=== PATIENT | female | born 1970 | race Caucasian/White ===

== ENCOUNTER → 2020-03-23 11:43 | Outpatient (BNVA) | payer MEDICAID, SELFPAY | PROVIDERS: PCP Internal Medicine; Referring Provider Internal Medicine; Visit Provider Internal Medicine Gastroenterology | DX: Z76.89 Persons encountering health services in other specified circumstances (principal) | CPT/HCPCS: 99213 ==

== ENCOUNTER → 2020-06-15 14:14 | Outpatient (BNVA) | payer MEDICAID, SELFPAY | PROVIDERS: Visit Provider Internal Medicine Gastroenterology | DX: Z76.89 Persons encountering health services in other specified circumstances (principal) ==

== ENCOUNTER → 2020-10-27 09:14 | Outpatient (BNVA) | payer MEDICAID, SELFPAY | PROVIDERS: PCP Internal Medicine; Visit Provider Internal Medicine Gastroenterology ==

== ENCOUNTER 2020-12-14 09:53 | Day surgery (SDC) | payer MEDICAID, SELFPAY ==
--- NOTE | 2020-12-14 09:48 | HO.ANESPROP2 ---
[facility] Active Problems Active Problems: All Active Problems (Updated 12/08/20 @ 09:57 by Sue Mullins) Acute anastomotic ulcer of gastrojejunal region (Acute) Past Medical History Medical History ADHD Anxiety disorder Asthma Depression GERD (gastroesophageal reflux disease) Hypothyroidism Kidney stones Family History Family History Unknown No problems noted. Mother No problems noted. Surgical History Surgical History History of lithotripsy Hx of cholecystectomy Hx of colonoscopy Hx of endoscopy Hx of gastric bypass Social History Social History Alcohol intake: never Substance Use Type: Marijuana Meds Allergies Allergy/AdvReac Type Severity Reaction Status Date / Time buspirone [From BUSPAR] Allergy Unknown UNKNOWN Verified 10/27/20 09:15 shellfish derived Allergy Unknown UNKNOWN Verified 10/27/20 09:15 [SHELLFISH DERIVED] Home Medications Medication Instructions Recorded Confirmed Last Taken Type albuterol sulfate [ProAir HFA] 2 puff PO DAILY 12/08/20 12/08/20 Unknown History aripiprazole 1 tab PO DAILY 12/08/20 12/08/20 Unknown History loratadine 1 tab PO DAILY 12/08/20 12/08/20 Unknown History Exam Exam Date and Time: December 14, 2020 0948 Airway Mallampati Class: II TM Dist: >3cm Neck ROM: Full
--- NOTE | 2020-12-14 10:02 | MHC.SHP ---
Pre-Procedural Eval Section A Date of Service: 12/14/20 Section B Chief Complaint: Acute anastomotic ulcer of gastrojejunal region Relevant Family History (Specify if Yes): No Relevant Social History: Tobacco Use (THC use as well) Present Medications: see Short Stay Collaborative assessment Medical History: Significant History (ADHD Anxiety disorder Asthma Depression GERD (gastroesophageal reflux disease) Hypothyroidism Kidney stones) History of Previous Operations: Relevant previous surgery/procedure and date(s) (History of lithotripsy Hx of cholecystectomy Hx of colonoscopy Hx of endoscopy Hx of gastric bypass) Allergies: Allergies Allergy/AdvReac Type Severity Reaction Status Date / Time buspirone [From BUSPAR] Allergy Unknown UNKNOWN Verified 10/27/20 09:15 shellfish derived Allergy Unknown UNKNOWN Verified 10/27/20 09:15 [SHELLFISH DERIVED] Review of Systems Sugical H&P ROS: Negative: Constitution, Cardiovascular, Respiratory, Neurological, Psychiatric, Hem-Onc, Allergic/Immunologic, Gastrointestinal, Genitourinary, Musculoskeletal, Integumentary, Endocrine and Eyes/Ears/Nose/Throat Exam Surgical H&P Exam: Normal: HEENT, Normal: Heart, Normal: Lungs, Normal: Extremities, Normal: Abdomen, Normal: Skin and Normal: Neurological Plan Diagnosis/Plan: Unchanged I have reviewed the history and physical and performed a pertinent physical examination on my patient. No changes have occurred unless specified.
[2020-12-14 10:24] VITALS: BP 110/72; PULSE 88; RESP 18; TEMP 36.8; O2SAT 98; BMI 23.3
[2020-12-14] MEDS: Lactated Ringers 1,000 ML 100 ML IVCONT (10:31)
--- NOTE | 2020-12-14 10:55 | P.BOP_ITS ---
Brief Operative Note Date of Service: 12/14/20 Pre-op diagnosis: hx of abdo pain and anastomotic ulcer Post-op diagnosis: same Procedure: see op note Surgeon: Ba Saleh MD Anesthesia: MAC Was an Customer Retention Representative used for this Procedure?: No Estimated blood loss (mL): 0 Condition: stable Disposition: PACU
--- NOTE | 2020-12-14 10:55 | W.PM.OPN ---
Operative Note Operative Note Date of Service: 12/14/20 Narrative: Procedure Description: EGD FLEXIBLE TRANSORAL UPPER GASTROINTESTINAL ENDOSCOPY UPPER ENDOSCOPY Consent: Indications for the procedure and potential complications of bleeding, perforation, reaction to medications and missed diagnosis were discussed with the patient and informed consent was obtained. Instrument: Olympus GIF H 190 J mid size upper endoscope Monitoring: Vital signs and clinical assessment, continuous EKG monitoring, Pulse oximetry, Carbon Dioxide monitoring and blood pressure monitoring were done throughout the procedure. Procedure: The patient was placed in the left lateral decubitis position and pre-procedure medications were administered and a bite block was placed. The endoscope was inserted into the mouth and advanced under direct vision to the third part of duodenum. A careful inspection was made as the upper endoscope was withdrawn including a retroflexed examination of the proximal stomach; Findings and interventions are described below. Hx of gastric bypass Findings: Larynx:normal Esophagus: GE junction at 40 cm, diaphragm hiatus at 40 cm, no varices or esophagitis. Stomach pouch: Pouch mucosa normal. Grade 2 flap valve on retroflexed examination of the cardia. There was a retained staple on gastric side, removed with forceps . mild erythema at the gastrojejunal anastomosis, slightly strictured, so dilated with 14 mm balloon. jejunum: normal Intervention: removal of staple, dilation of anastomosis Impression/Findings: mild inflammation around gastrojejunal junction stricture retained staple PLAN: cont with carafate and PPI smoking cessation if sx persist then further w/u, small bowel series
[2020-12-14 11:00] VITALS: BP 84/48; PULSE 77; RESP 10; TEMP 36.1; O2SAT 99
[2020-12-14 11:16] VITALS: BP 103/63; PULSE 79; RESP 16; O2SAT 99
[2020-12-14 11:30] VITALS: BP 116/71; PULSE 86; RESP 16; TEMP 36.1; O2SAT 100
== END 2020-12-14 11:54 | disposition home or self-care (01) ==
PROVIDERS: PCP Internal Medicine; Visit Provider Internal Medicine Gastroenterology
PROC: 0DJ08ZZ Inspection of Upper Intestinal Tract, Via Natural or Artificial Opening Endoscopic (ICD-10-PCS; CPT 43235; principal; 2020-12-14 11:00)
DX: K95.89 Other complications of other bariatric procedure (principal); Y83.2 Surgical operation with anastomosis, bypass or graft as the cause of abnormal reaction of the patient, or of later complication, without mention of misadventure at the time of the procedure; K31.89 Other diseases of stomach and duodenum; K28.3 Acute gastrojejunal ulcer without hemorrhage or perforation; Z98.84 Bariatric surgery status; Z90.49 Acquired absence of other specified parts of digestive tract; K44.9 Diaphragmatic hernia without obstruction or gangrene; Z18.89 Other specified retained foreign body fragments; K21.9 Gastro-esophageal reflux disease without esophagitis; J45.909 Unspecified asthma, uncomplicated; Z87.442 Personal history of urinary calculi; F17.210 Nicotine dependence, cigarettes, uncomplicated; F12.90 Cannabis use, unspecified, uncomplicated; Z79.899 Other long term (current) drug therapy; Z88.8 Allergy status to other drugs, medicaments and biological substances
CPT/HCPCS: 43245; C1726; J2250

== ENCOUNTER → 2021-01-11 10:29 | Outpatient (BNVA) | payer MEDICAID, SELFPAY | PROVIDERS: PCP Internal Medicine; Visit Provider Internal Medicine Gastroenterology ==

== ENCOUNTER → 2021-05-24 10:44 | Outpatient (BNVA) | payer MEDICAID, SELFPAY | PROVIDERS: PCP Internal Medicine; Visit Provider Internal Medicine Gastroenterology | DX: K59.00 Constipation, unspecified (principal) | CPT/HCPCS: 99212 ==

== ENCOUNTER → 2021-09-27 12:16 | Outpatient (BNVA) | payer MEDICAID, SELFPAY | PROVIDERS: PCP Internal Medicine; Visit Provider Internal Medicine Gastroenterology | DX: Z13.89 Encounter for screening for other disorder (principal) ==

== ENCOUNTER 2022-07-18 16:53 | Emergency (ER) | payer MEDICAID, SELFPAY ==
--- NOTE | ~2022-07-18 | CT_ITS ---
EXAMINATION: CT BRAIN AND CT CERVICAL SPINE WITHOUT CONTRAST. CLINICAL INFORMATION: Neck pain. COMPARISON: None TECHNIQUE: 5 mm thin axial and reformatted 2 mm thin sagittal and coronal images of brain were obtained. Subsequently axial 3 mm thin and reformatted 2 mm thin sagittal coronal images of cervical spine were obtained. DLP 951. This CT examination was performed using dose optimization technique as appropriate, variously including the following: Automated exposure control Adjustment of MA and/or KV according to patient size(this includes techniques or standardized protocols for targeted exams where dose is matched to indication/reason for exam; extremities or head. Use of iterative reconstruction techniques. FINDINGS: BRAIN: There is no acute intra-axial, extra-axial bleed, masses or midline shift. There is no acute infarction in evolution. There is no edema. The mobley to white matter difference is maintained normal. The lateral ventricles are symmetrical in size and configuration without enlargement. Bone windows reveal no calvarial abnormality. There is no scalp soft tissue normality seen. Bilateral paranasal sinuses and mastoid air cells are well-aerated. Cervical spine: There is mild straightening of cervical lordosis. The vertebral heights, alignment and disc heights are normal. No visible acute fracture or dislocation seen. There is a rotatory subluxation at C1-C2 disc level. The craniovertebral junction is normal. The prevertebral and paravertebral soft tissues are normal. The tracheal airway is widely patent. The lung apices are clear. CT/CT cervical spine wo IV con IMPRESSION: No acute intracranial process seen. Rotary subluxation C1-C2 disc level. No acute fracture or dislocation seen.
--- NOTE | ~2022-07-18 | CT_ITS ---
EXAMINATION: CT BRAIN AND CT CERVICAL SPINE WITHOUT CONTRAST. CLINICAL INFORMATION: Neck pain. COMPARISON: None TECHNIQUE: 5 mm thin axial and reformatted 2 mm thin sagittal and coronal images of brain were obtained. Subsequently axial 3 mm thin and reformatted 2 mm thin sagittal coronal images of cervical spine were obtained. DLP 951. This CT examination was performed using dose optimization technique as appropriate, variously including the following: Automated exposure control Adjustment of MA and/or KV according to patient size(this includes techniques or standardized protocols for targeted exams where dose is matched to indication/reason for exam; extremities or head. Use of iterative reconstruction techniques. FINDINGS: BRAIN: There is no acute intra-axial, extra-axial bleed, masses or midline shift. There is no acute infarction in evolution. There is no edema. The mobley to white matter difference is maintained normal. The lateral ventricles are symmetrical in size and configuration without enlargement. Bone windows reveal no calvarial abnormality. There is no scalp soft tissue normality seen. Bilateral paranasal sinuses and mastoid air cells are well-aerated. Cervical spine: There is mild straightening of cervical lordosis. The vertebral heights, alignment and disc heights are normal. No visible acute fracture or dislocation seen. There is a rotatory subluxation at C1-C2 disc level. The craniovertebral junction is normal. The prevertebral and paravertebral soft tissues are normal. The tracheal airway is widely patent. The lung apices are clear. CT/CT head/brain wo IV con IMPRESSION: No acute intracranial process seen. Rotary subluxation C1-C2 disc level. No acute fracture or dislocation seen.
[2022-07-18 16:54] VITALS: BP 144/102; PULSE 95; RESP 18; TEMP 36.7; O2SAT 98; BMI 20.9
--- NOTE | 2022-07-18 17:50 | ED.NEUROSD ---
HPI - Neuro Symptoms/Deficit General Chief Complaint: Neuro Symptoms/Deficit Stated Complaint: quest stroke Related Data Home Medications Medication Instructions Recorded Confirmed albuterol sulfate 90 mcg/actuation 2 puff PO DAILY 12/08/20 12/08/20 aerosol inhaler (ProAir HFA) clonazepam 2 mg tablet 2 mg PO TID 09/27/21 dextroamphetamine-amphetamine 30 1 tab PO BID 09/27/21 mg tablet levothyroxine 175 mcg tablet 175 mcg PO DAILY 09/27/21 nitrofurantoin 1 cap PO DAILY 09/27/21 monohydrate/macrocrystals 100 mg capsule tramadol 50 mg tablet 100 mg PO QID 09/27/21 valacyclovir 500 mg tablet 500 mg PO DAILY 09/27/21 duloxetine 30 mg capsule,delayed 30 mg PO DAILY 03/31/22 release Previous Rx's Medication Instructions Recorded ondansetron 8 mg disintegrating 8 mg PO Q8H #60 tabs 01/11/21 tablet omeprazole 40 mg capsule,delayed 40 mg PO BID #90 caps 03/31/22 release polyethylene glycol 3350 17 17 g PO BID #510 grams 03/31/22 gram/dose oral powder (Miralax) prochlorperazine 25 mg rectal 25 mg MT BID PRN nausea and 03/31/22 suppository vomiting #12 ea sucralfate 100 mg/mL oral 10 ml PO BID #1,000 mL 03/31/22 suspension (Carafate) food supplemt, lactose-reduced 1 ea PO BID malnutrition #14,220 mL 04/26/22 0.06 gram-1.5 kcal/mL oral liquid (Boost Plus) Allergies Allergy/AdvReac Type Severity Reaction Status Date / Time scallops Allergy Mild Unknown Verified 09/27/21 12:17 buspirone [From BUSPAR] Allergy Unknown UNKNOWN Verified 09/27/21 12:17 shellfish derived Allergy Unknown UNKNOWN Verified 09/27/21 12:17 [SHELLFISH DERIVED] [facility] Past Medical History Medical History ADHD Anxiety disorder Asthma Depression GERD (gastroesophageal reflux disease) Hypothyroidism Kidney stones Surgical History History of lithotripsy Hx of cholecystectomy Hx of colonoscopy Hx of endoscopy Hx of gastric bypass Family History Family History Unknown No problems noted. Mother No problems noted. Social History Social History Alcohol intake: never Patient Tobacco Use Status: Current everyday Tobacco user Tobacco use type: Cigarette Cigarettes Per Day: 10 Second Hand Smoke Exposure: No Substance Use Type: Marijuana Advance Directives: No Advance Directives Information Provided: No Physical Exam Vital Signs: Vital Signs: Last Vital Signs Temp 98.0 F 07/18/22 16:54 Pulse 95 07/18/22 16:54 Resp 18 07/18/22 16:54 BP 144/102 H 07/18/22 16:54 Pulse Ox 98 07/18/22 16:54 O2 Del Method 07/18/22 16:54 BMI result Body Mass Index 20.9 Course Course Course Narrative: This is a rapid medical exam. Deferred additional HPI, ROS, PE to primary provider. 51-year-old female who presents with waking yesterday with right sided numbness in the arm and in the face. Patient not within tPA window due to length of symptoms Will need labs, EKG, CT head, COVID screen Patient quite anxious and triage. Patient mildly hypertensive. Additional vital signs are stable Medical Decision Making Lab Data 07/18/22 18:00 07/18/22 18:00 Labs: Lab Results 07/18/22 07/18/22 07/18/22 Range/Units 18:00 18:00 18:00 WBC 6.4 (4.8-10.8) X10*3/uL RBC 4.72 (4.20-5.50) X10*6/uL Hgb 10.8 L (12.0-16.0) g/dl Hct 35.2 L (37.0-47.0) % MCV 74.6 L (80.0-98.0) fL MCH 22.9 L (27.0-33.0) pg MCHC 30.7 L (31.0-35.0) g/dl RDW 18.5 H (11.0-16.0) % Plt Count 292 (160-400) X10*3/uL MPV 8.4 L (9.4-12.3) fL Immature Gran % (Auto) 0.3 (0.0-0.4) % Neut % (Auto) 73.6 H (45-73) % Lymph % (Auto) 15.9 L (20-40) % [place] % (Auto) 8.5 (2-11) % Eos % (Auto) 1.1 (0-4) % Baso % (Auto) 0.6 (0-2) % Lymph # (Auto) 1.0 L (1.2-4.9) X10*3/uL [place] # (Auto) 0.5 (0.1-1.2) X10*3/uL Eos # (Auto) 0.1 (0.0-0.4) X10*3/uL Baso # (Auto) 0.0 (0.0-0.2) X10*3/uL Abs Immat Gran (auto) 0.02 (0.00-0.03) X10*3/uL Absolute Neuts (auto) 4.7 (2.0-8.3) x10*3/uL Absolute Nucleated RBC 0.000 (0.0-0.012) X10*3/uL Nucleated RBC % (auto) 0.0 (0.0-0.2) /100WBC PT (10.0-13.1) SEC INR (0.9-1.1) Sodium 137 (135-145) mmol/L Potassium 4.3 (3.3-5.1) mmol/L Chloride 103 (96-108) mmol/L Carbon Dioxide 27 (22-29) mmol/L Anion Gap 11 L (12-20) BUN 8 L (9-16) mg/dL Creatinine 0.70 (0.5-1.4) mg/dL Estim Creat Clear Calc 90.4 Estimated GFR > 60 Random Glucose 133 H (60-115) mg/dL Calcium 9.1 (8.4-10.2) mg/dL Magnesium (1.6-2.6) mg/dL Total Bilirubin 0.5 (0.0-1.0) mg/dL AST 22 (5-31) U/L ALT 23 (0-31) U/L Alkaline Phosphatase 79 (39-117) U/L Troponin I High Sens (<3.5-17.0) ng/L Total Protein 6.6 (6.5-8.0) g/dL Albumin 4.0 (3.5-5.0) g/dL Influenza Type A (PCR) NEGATIVE (Negative) Influenza Type B (PCR) NEGATIVE (Negative) RSV RNA Qual (PCR) NEGATIVE (Negative) SARS-CoV-2 RNA (RT-PCR) NEGATIVE (Negative) 07/18/22 07/18/22 07/18/22 Range/Units 18:00 18:00 18:01 WBC (4.8-10.8) X10*3/uL RBC (4.20-5.50) X10*6/uL Hgb (12.0-16.0) g/dl Hct (37.0-47.0) % MCV (80.0-98.0) fL MCH (27.0-33.0) pg MCHC (31.0-35.0) g/dl RDW (11.0-16.0) % Plt Count (160-400) X10*3/uL MPV (9.4-12.3) fL Immature Gran % (Auto) (0.0-0.4) % Neut % (Auto) (45-73) % Lymph % (Auto) (20-40) % [place] % (Auto) (2-11) % Eos % (Auto) (0-4) % Baso % (Auto) (0-2) % Lymph # (Auto) (1.2-4.9) X10*3/uL [place] # (Auto) (0.1-1.2) X10*3/uL Eos # (Auto) (0.0-0.4) X10*3/uL Baso # (Auto) (0.0-0.2) X10*3/uL Abs Immat Gran (auto) (0.00-0.03) X10*3/uL Absolute Neuts (auto) (2.0-8.3) x10*3/uL Absolute Nucleated RBC (0.0-0.012) X10*3/uL Nucleated RBC % (auto) (0.0-0.2) /100WBC PT 10.0 (10.0-13.1) SEC INR 0.9 (0.9-1.1) Sodium (135-145) mmol/L Potassium (3.3-5.1) mmol/L Chloride (96-108) mmol/L Carbon Dioxide (22-29) mmol/L Anion Gap (12-20) BUN (9-16) mg/dL Creatinine (0.5-1.4) mg/dL Estim Creat Clear Calc Estimated GFR Random Glucose (60-115) mg/dL Calcium (8.4-10.2) mg/dL Magnesium 2.0 (1.6-2.6) mg/dL Total Bilirubin (0.0-1.0) mg/dL AST (5-31) U/L ALT (0-31) U/L Alkaline Phosphatase (39-117) U/L Troponin I High Sens < 3.5 (<3.5-17.0) ng/L Total Protein (6.5-8.0) g/dL Albumin (3.5-5.0) g/dL Influenza Type A (PCR) (Negative) Influenza Type B (PCR) (Negative) RSV RNA Qual (PCR) (Negative) SARS-CoV-2 RNA (RT-PCR) (Negative) Discharge Plan Discharge Clinical Impression: Numbness Patient Disposition: Elopement Prescriptions: No Action Boost Plus 0.06 gram- 1.5 kcal/mL liquid 1 ea PO BID Qty: 45740 2RF Rx Instructions: drink 237 oz twice a day albuterol sulfate [ProAir HFA] 90 mcg/actuation HFA aerosol inhaler 2 puff PO DAILY ondansetron 8 mg tablet,disintegrating 8 mg PO Q8H Qty: 60 2RF levothyroxine 175 mcg tablet 175 mcg PO DAILY valacyclovir 500 mg tablet 500 mg PO DAILY nitrofurantoin monohyd/m-cryst 100 mg capsule 1 cap PO DAILY clonazepam 2 mg tablet 2 mg PO TID tramadol 50 mg tablet 100 mg PO QID dextroamphetamine-amphetamine 30 mg tablet 1 tab PO BID duloxetine 30 mg capsule,delayed release(DR/EC) 30 mg PO DAILY omeprazole 40 mg capsule,delayed release(DR/EC) 40 mg PO BID Qty: 90 3RF sucralfate [Carafate] 100 mg/mL suspension 10 ml PO BID Qty: 1000 4RF polyethylene glycol 3350 [Miralax] 17 gram/dose powder 17 g PO BID Qty: 510 1RF prochlorperazine 25 mg suppository 25 mg MT BID PRN (Reason: nausea and vomiting) Qty: 12 0RF Discharge Date/Time: 07/18/22 23:42
--- NOTE | 2022-07-18 17:51 | ECG_ITS ---
Test Reason : arm numbness Blood Pressure : / mmHG Vent. Rate : 075 BPM Atrial Rate : 075 BPM P-R Int : 120 ms QRS Dur : 088 ms QT Int : 390 ms P-R-T Axes : 028 061 055 degrees QTc Int : 435 ms Normal sinus rhythm Normal ECG When compared with ECG of 13-FEB-2019 02:34, No significant change was found Referred By: Johanne Bertrand Electronically Signed By:Mariano Deutsch
[2022-07-18 18:11] LABS: MANUAL DIFF FLAG NO
[2022-07-18 18:17] LABS: Basophils Percent Auto 0.6 % (0-2); Eosinophils Absolute Auto 0.1 X10*3/uL (0.0-0.4); Eosinophils Percent Auto 1.1 % (0-4); Hematocrit 35.2 % (37.0-47.0); Hemoglobin 10.8 g/dl (12.0-16.0); Imm Gran Abs Auto 0.02 X10*3/uL (0.00-0.03); Imm Gran Pct Auto 0.3 % (0.0-0.4); Lymphocytes Percent Auto 15.9 % (20-40); Mean Corpuscular HGB Conc 30.7 g/dl (31.0-35.0); Mean Corpuscular Hemoglobin 22.9 pg (27.0-33.0); Mean Corpuscular Volume 74.6 fL (80.0-98.0); Mean Platelet Volume 8.4 fL (9.4-12.3); Monocytes Absolute Auto 0.5 X10*3/uL (0.1-1.2); Monocytes Percent Auto 8.5 % (2-11); Neutrophils Absolute Auto 4.7 x10*3/uL (2.0-8.3); Neutrophils Percent Auto 73.6 % (45-73); Platelet Count 292 X10*3/uL (160-400); Red Blood Count 4.72 X10*6/uL (4.20-5.50); Red Cell Distribution Width 18.5 % (11.0-16.0); White Blood Count 6.4 X10*3/uL (4.8-10.8)
[2022-07-18 18:24] LABS: INTERNATIONAL NORM RATIO 0.9 (0.9-1.1)
[2022-07-18 18:30] LABS: Alanine Aminotransferase 23 U/L (0-31); Alkaline Phosphatase 79 U/L (39-117); Anion Gap 11 (12-20); Aspartate Amino Transferase 22 U/L (5-31); Bilirubin Total 0.5 mg/dL (0.0-1.0); Blood Urea Nitrogen 8 mg/dL (9-16); Calcium 9.1 mg/dL (8.4-10.2); Carbon Dioxide 27 mmol/L (22-29); Chloride 103 mmol/L (96-108); Creatinine Clr Calc Pharmacy 90.4; Estimated Glomerular Filt Rate > 60; Glucose Random 133 mg/dL (60-115); Potassium 4.3 mmol/L (3.3-5.1); Sodium 137 mmol/L (135-145); Total Protein 6.6 g/dL (6.5-8.0)
[2022-07-18 18:41] LABS: Troponin-I High Sensitivity < 3.5 ng/L (<3.5-17.0)
[2022-07-18 18:52] LABS: Influenza A PCR NEGATIVE (Negative); Influenza B PCR NEGATIVE (Negative); Resp Syncy Virus RNA Qual PCR NEGATIVE (Negative); SARS COV2 PCR INHOUSE NEGATIVE (Negative)
== END 2022-07-18 23:42 | disposition left against medical advice (07) ==
PROVIDERS: Nurse Practitioner Family; Emergency Provider Emergency Medicine; PCP Internal Medicine
DX: R20.0 Anesthesia of skin (principal); M54.2 Cervicalgia; R51.9 Headache, unspecified; F17.210 Nicotine dependence, cigarettes, uncomplicated; Z20.822 Contact with and (suspected) exposure to COVID-19; Z20.828 Contact with and (suspected) exposure to other viral communicable diseases; Z79.899 Other long term (current) drug therapy; Z71.6 Tobacco abuse counseling
CPT/HCPCS: 0241U; 36415; 70450; 72125; 80053; 83735; 84484; 85025; 85610; 93005; 99283; 99284

== ENCOUNTER → 2022-08-01 11:17 | Outpatient (BNVA) | payer MEDICAID, SELFPAY | PROVIDERS: PCP Internal Medicine; Referring Provider Internal Medicine; Visit Provider Internal Medicine Gastroenterology | DX: K59.00 Constipation, unspecified (principal); K28.9 Gastrojejunal ulcer, unspecified as acute or chronic, without hemorrhage or perforation | CPT/HCPCS: 99212 ==

== ENCOUNTER 2022-08-31 08:51 | Emergency (ER) | payer MEDICAID, SELFPAY ==
[2022-08-31 08:52] VITALS: BP 155/93; PULSE 106; RESP 18; TEMP 35.9; O2SAT 100; BMI 19.7
--- NOTE | 2022-08-31 09:34 | ED_ITS ---
HPI - General Adult General Chief complaint: General Medical Stated complaint: Serotonin syndrome Time Seen by Provider: 08/31/22 09:24 Source: patient Mode of arrival: ambulatory Limitations: no limitations History of Present Illness HPI narrative: This is a 52 years old female with history of anxiety disorder/depression history of really surgery presented to the emergency department complaining of ends pain nausea vomiting. Patient thinks that these symptoms are related to the Cymbalta, she has been taking Cymbalta for about 6 months she has been having symptoms for about 1 Month denies any fever chills. Onset (ago): month(s) (1) Location: abdomen Radiation: non-radiation Severity: moderate Pain Consistency: constant Relieving factors: none Exacerbating factors: none Related Data Home Medications Medication Instructions Recorded Confirmed albuterol sulfate 90 mcg/actuation 2 puff PO DAILY 12/08/20 12/08/20 aerosol inhaler (ProAir HFA) clonazepam 2 mg tablet 2 mg PO TID 09/27/21 dextroamphetamine-amphetamine 30 1 tab PO BID 09/27/21 mg tablet levothyroxine 175 mcg tablet 175 mcg PO DAILY 09/27/21 nitrofurantoin 1 cap PO DAILY 09/27/21 monohydrate/macrocrystals 100 mg capsule tramadol 50 mg tablet 100 mg PO QID 09/27/21 valacyclovir 500 mg tablet 500 mg PO DAILY 09/27/21 duloxetine 30 mg capsule,delayed 30 mg PO DAILY 03/31/22 release naloxone 4 mg/actuation nasal spray 1 spray intranasal DAILY 08/01/22 Previous Rx's Medication Instructions Recorded ondansetron 8 mg disintegrating 8 mg PO Q8H #60 tabs 01/11/21 tablet omeprazole 40 mg capsule,delayed 40 mg PO BID #90 caps 03/31/22 release polyethylene glycol 3350 17 17 g PO BID #510 grams 03/31/22 gram/dose oral powder (Miralax) prochlorperazine 25 mg rectal 25 mg MT BID PRN nausea and 03/31/22 suppository vomiting #12 ea sucralfate 100 mg/mL oral 10 ml PO BID #1,000 mL 03/31/22 suspension (Carafate) food supplemt, lactose-reduced 1 ea PO BID malnutrition #14,220 mL 08/30/22 0.06 gram-1.5 kcal/mL oral liquid (Boost Plus) metoclopramide HCl 10 mg tablet 10 mg PO Q6H PRN nausea and 08/31/22 (Reglan) vomiting #15 tabs Allergies Allergy/AdvReac Type Severity Reaction Status Date / Time scallops Allergy Mild Unknown Verified 08/01/22 11:25 buspirone [From BUSPAR] Allergy Unknown UNKNOWN Verified 08/01/22 11:25 Review of Systems Review of Systems: Yes all other systems are reviewed and are negative Cardiovascular: Cardiovascular: Reports no additional cardiovascular complaints Gastrointestinal: Gastrointestinal: Reports vomiting PMFSH Past Medical History Medical History ADHD Anxiety disorder Asthma Depression GERD (gastroesophageal reflux disease) Hypothyroidism Kidney stones Surgical History History of lithotripsy Hx of cholecystectomy Hx of colonoscopy Hx of endoscopy Hx of gastric bypass Family History Family History Unknown No problems noted. Mother No problems noted. Social History Social History Alcohol intake: current Alcohol intake frequency: a few times a week Patient Tobacco Use Status: Current everyday Tobacco user Tobacco use type: Cigarette Cigarettes Per Day: 10 Smoked in Last 30 Days: Yes Second Hand Smoke Exposure: No Use of substances other than those prescribed or required for medical reasons: Yes Substance Use Type: Marijuana Last Used Substance: Days (ago) Advance Directives: No Advance Directives Information Provided: Yes Patient : No Physical Exam ED Vital Signs: Vital Signs - 24 hr 08/31/22 08:52 08/31/22 10:13 08/31/22 12:14 Temperature 96.6 F L 98.6 F 97.7 F Pulse Rate 106 H 77 86 Respiratory Rate 18 16 14 Blood Pressure 155/93 H 105/66 114/76 Pulse Oximetry 100 100 96 Oxygen Delivery Method Room Air Room Air Room Air BMI result Body Mass Index 19.7 Const General: cooperative Nutritional Appearance: average body habitus Orientation/consciousness: patient oriented x3 Limitations: no limitations HENMT Head: Yes normal to inspection Ears: hearing grossly normal bilaterally General nose exam: Normal external nose present Throat: Yes posterior oropharynx normal Neck Neck: Yes normal visual inspection and Yes full ROM Chest Chest palpation & inspection: normal inspection of the chest Resp Effort & Inspection: normal respiratory effort Auscultation: clear to auscultation bilaterally Cardio Jugular venous distension: no JVD Rate: regular rate Rhythm: regular rhythm GI Inspection: Yes normal to inspection Palpation (GI): Soft to palpation, not firm, nontender and no guarding Skin General skin exam: no rashes or lesions noted and elasticity normal Lesions: no lesions Rashes: no rashes Neuro General: patient oriented x3 Course Reevaluation(s) Reevaluation #1: I re-examined the patient she has stable vital signs afebrile heart rate is now 77 oxygen is 100% labs within normal limits no evidence of electrolyte abnormality no evidence of renal insufficiency I think it the patient can be discharged home Time: 11:48 Medications Administered Discontinued Medications Generic Name Dose Route Start Last Admin Trade Name Freq PRN Reason Stop Dose Admin Sodium Chloride 1,000 mls @ 999 mls/hr 08/31/22 09:45 08/31/22 11:51 Ns IVCONT 08/31/22 10:45 Infused .Q1H1M AINSLEY Infusion Ondansetron HCl 4 mg 08/31/22 09:32 08/31/22 10:04 Ondansetron Hcl 4 Mg/2 Ml Vial IVPUSH 08/31/22 09:33 4 mg ONCE ONE Administration Medical Decision Making Medical Decision Making [facility] Narrative: Patient presenting nausea vomiting arthralgia will get labs hydrated re exam Differential Diagnosis Differential Diagnoses: The differential diagnosis associated with the presentation includes Differential diagnosis dehydration/electrolyte imbalance/side effect of Cymbalta Lab Data [facility] Lab Attestation statement: I reviewed the patient's lab results. 08/31/22 09:55 08/31/22 10:55 Labs: Lab Results 08/31/22 08/31/22 Range/Units 09:55 10:55 WBC 6.4 (4.8-10.8) X10*3/uL RBC 4.97 (4.20-5.50) X10*6/uL Hgb 11.1 L (12.0-16.0) g/dl Hct 35.8 L (37.0-47.0) % MCV 72.0 L (80.0-98.0) fL MCH 22.3 L (27.0-33.0) pg MCHC 31.0 (31.0-35.0) g/dl RDW 18.8 H (11.0-16.0) % Plt Count 203 D (160-400) X10*3/uL MPV 8.5 L (9.4-12.3) fL Immature Gran % (Auto) 0.3 (0.0-0.4) % Neut % (Auto) 63.4 (45-73) % Lymph % (Auto) 24.8 (20-40) % Winston % (Auto) 9.1 (2-11) % Eos % (Auto) 1.3 (0-4) % Baso % (Auto) 1.1 (0-2) % Lymph # (Auto) 1.6 (1.2-4.9) X10*3/uL Winston # (Auto) 0.6 (0.1-1.2) X10*3/uL Eos # (Auto) 0.1 (0.0-0.4) X10*3/uL Baso # (Auto) 0.1 (0.0-0.2) X10*3/uL Abs Immat Gran (auto) 0.02 (0.00-0.03) X10*3/uL Absolute Neuts (auto) 4.0 (2.0-8.3) x10*3/uL Absolute Nucleated RBC 0.000 (0.0-0.012) X10*3/uL Nucleated RBC % (auto) 0.0 (0.0-0.2) /100WBC Sodium 137 (135-145) mmol/L Potassium 3.9 (3.3-5.1) mmol/L Chloride 106 (96-108) mmol/L Carbon Dioxide 23 (22-29) mmol/L Anion Gap 12 (12-20) BUN 12 (9-16) mg/dL Creatinine 0.64 (0.5-1.4) mg/dL Estim Creat Clear Calc 91.8 Estimated GFR > 60 Random Glucose 76 (60-115) mg/dL Calcium 8.1 L D (8.4-10.2) mg/dL Total Bilirubin 0.5 (0.0-1.0) mg/dL AST 22 (5-31) U/L ALT 20 (0-31) U/L Alkaline Phosphatase 50 (39-117) U/L Total Protein 5.4 L (6.5-8.0) g/dL Albumin 3.2 L (3.5-5.0) g/dL Lipase 18 (8-78) U/L Independent Historian Clinical information obtained from an independent historian. History obtained from or confirmed by: Spouse Discharge Plan Discharge Clinical Impression: Vomiting Patient Disposition: Home, Self-Care Instructions: Acute Nausea and Vomiting (ED) Additional Instructions: Please follow-up with your primary care physician discuss with him a the possibility to discontinue Cymbalta or wean you off Cymbalta Prescriptions: New metoclopramide HCl [Reglan] 10 mg tablet 10 mg PO Q6H PRN (Reason: nausea and vomiting) Qty: 15 0RF Rx Instructions: use bonly as needed for nausea/vomiting No Action Boost Plus 0.06 gram- 1.5 kcal/mL liquid 1 ea PO BID Qty: 13083 2RF Rx Instructions: drink 237 oz twice a day albuterol sulfate [ProAir HFA] 90 mcg/actuation HFA aerosol inhaler 2 puff PO DAILY ondansetron 8 mg tablet,disintegrating 8 mg PO Q8H Qty: 60 2RF naloxone 4 mg/actuation spray,non-aerosol 1 spray intranasal DAILY levothyroxine 175 mcg tablet 175 mcg PO DAILY valacyclovir 500 mg tablet 500 mg PO DAILY nitrofurantoin monohyd/m-cryst 100 mg capsule 1 cap PO DAILY clonazepam 2 mg tablet 2 mg PO TID tramadol 50 mg tablet 100 mg PO QID dextroamphetamine-amphetamine 30 mg tablet 1 tab PO BID duloxetine 30 mg capsule,delayed release(DR/EC) 30 mg PO DAILY omeprazole 40 mg capsule,delayed release(DR/EC) 40 mg PO BID Qty: 90 3RF sucralfate [Carafate] 100 mg/mL suspension 10 ml PO BID Qty: 1000 4RF polyethylene glycol 3350 [Miralax] 17 gram/dose powder 17 g PO BID Qty: 510 1RF prochlorperazine 25 mg suppository 25 mg MT BID PRN (Reason: nausea and vomiting) Qty: 12 0RF Referrals: Abdulkadir Eaton MD [Primary Care Provider] - Interventions: ED Discharge Assessment Last Done: 08/31/22 12:15 Discharge Date/Time: 08/31/22 12:17
[2022-08-31 09:58] LABS: MANUAL DIFF FLAG NO
[2022-08-31 10:00] LABS: Basophils Absolute Auto 0.1 X10*3/uL (0.0-0.2); Basophils Percent Auto 1.1 % (0-2); Eosinophils Absolute Auto 0.1 X10*3/uL (0.0-0.4); Eosinophils Percent Auto 1.3 % (0-4); Hematocrit 35.8 % (37.0-47.0); Hemoglobin 11.1 g/dl (12.0-16.0); Imm Gran Abs Auto 0.02 X10*3/uL (0.00-0.03); Imm Gran Pct Auto 0.3 % (0.0-0.4); Lymphocytes Absolute Auto 1.6 X10*3/uL (1.2-4.9); Lymphocytes Percent Auto 24.8 % (20-40); Mean Corpuscular Hemoglobin 22.3 pg (27.0-33.0); Mean Platelet Volume 8.5 fL (9.4-12.3); Monocytes Absolute Auto 0.6 X10*3/uL (0.1-1.2); Monocytes Percent Auto 9.1 % (2-11); Neutrophils Percent Auto 63.4 % (45-73); Platelet Count 203 X10*3/uL (160-400); Red Blood Count 4.97 X10*6/uL (4.20-5.50); Red Cell Distribution Width 18.8 % (11.0-16.0); White Blood Count 6.4 X10*3/uL (4.8-10.8)
[2022-08-31] MEDS: ondansetron HCL 4 MG/2 ML VIAL IVPUSH (10:04)
[2022-08-31] MEDS: 0.9 % Sodium Chloride 1,000 ML 999 ML IVCONT (10:04)
--- NOTE | 2022-08-31 10:09 | PC.NURSE ---
Patient with nausea for a few weeks and vomiting since yesterday. IV placed to right forearm and fluids started. Patient anxious but cooperative.
[2022-08-31 10:13] VITALS: BP 105/66; PULSE 77; RESP 16; TEMP 37; O2SAT 100
--- NOTE | 2022-08-31 10:55 | PC.NURSE ---
Labwork redrawn per request of lab.
[2022-08-31 11:25] LABS: Alanine Aminotransferase 20 U/L (0-31); Albumin Level 3.2 g/dL (3.5-5.0); Alkaline Phosphatase 50 U/L (39-117); Anion Gap 12 (12-20); Aspartate Amino Transferase 22 U/L (5-31); Bilirubin Total 0.5 mg/dL (0.0-1.0); Blood Urea Nitrogen 12 mg/dL (9-16); Calcium 8.1 mg/dL (8.4-10.2); Carbon Dioxide 23 mmol/L (22-29); Chloride 106 mmol/L (96-108); Creatinine Clr Calc Pharmacy 91.8; Estimated Glomerular Filt Rate > 60; Glucose Random 76 mg/dL (60-115); Lipase 18 U/L (8-78); Potassium 3.9 mmol/L (3.3-5.1); Sodium 137 mmol/L (135-145); Total Protein 5.4 g/dL (6.5-8.0)
[2022-08-31 12:14] VITALS: BP 114/76; PULSE 86; RESP 14; TEMP 36.5; O2SAT 96
== END 2022-08-31 12:17 | disposition home or self-care (01) ==
PROVIDERS: Emergency Provider Emergency Medicine; PCP Internal Medicine
DX: R11.2 Nausea with vomiting, unspecified (principal); F41.1 Generalized anxiety disorder; R10.9 Unspecified abdominal pain; Z79.899 Other long term (current) drug therapy; F17.210 Nicotine dependence, cigarettes, uncomplicated; Z71.6 Tobacco abuse counseling
CPT/HCPCS: 36415; 80053; 83690; 85025; 96361; 96374; 99284; J2405

== ENCOUNTER → 2022-09-02 09:26 | Outpatient (BNVA) | payer MEDICAID, SELFPAY | PROVIDERS: PCP Internal Medicine; Visit Provider Internal Medicine Gastroenterology ==

== ENCOUNTER 2022-09-02 10:42 | Emergency (ER) | payer MEDICAID, SELFPAY ==
--- NOTE | ~2022-09-02 | CT_ITS ---
EXAMINATION: CT ABDOMEN AND PELVIS WITHOUT CONTRAST CLINICAL INFORMATION: Right lower quadrant pain. COMPARISON: CT abdomen and pelvis 10/22/2018. TECHNIQUE: Multidetector volumetric imaging was performed from the superior aspect of the liver through the pubic symphysis. Sagittal and coronal reformatted images were obtained on the technologist's workstation. This CT examination was performed using dose optimization techniques as appropriate, variously including the following: *Automated exposure control *Adjustment of mA and/or kV according to patient size (this includes techniques or standardized protocols for targeted exams where dose is matched to indication/reason for exam; i.e. extremities or head) *Use of iterative reconstruction technique DLP: 355 mGy-cm FINDINGS: LUNG BASES: The visualized lung bases are unremarkable. LIVER, GALLBLADDER, AND BILIARY TREE: The liver is normal in size, shape, and attenuation. No focal hepatic lesion or biliary ductal dilatation is present. The gallbladder has been surgically removed. The CBD is distended, 5 mm proximal and 8 mm in the distal segment. PANCREAS: Unremarkable SPLEEN: Unremarkable ADRENAL GLANDS: Unremarkable KIDNEYS AND URETERS: The kidneys are normal in size, shape, and attenuation. There are bilateral nonobstructive radiopaque calculi. The largest calculi in the upper pole measures 4 mm and midpole right kidney cortex measures 3 mm. No caliectasis or hydronephrosis seen. BLADDER: Unremarkable GASTROINTESTINAL TRACT: There is [id number] amount of stool seen in colon without significant distention. There are postsurgical changes in the left epigastric, likely gastric bypass and left midabdomen related to small bowel. No small bowel dilatation seen. Appendix is not seen. There is no free air or free fluid. ABDOMINAL WALL: There are postsurgical changes anterior abdominal wall with a soft tissue density, axial image 44/3. No evidence of hernia. LYMPH NODES: Normal VASCULAR: Unremarkable PELVIC VISCERA: There is a hypodense lesion in the right adnexa measuring 3 cm and fluid density, likely ovarian cysts. A retroverted uterus with IUD is noted. No free fluid in the cul-de-sac. No abnormal pelvic lymph nodes. OSSEOUS STRUCTURES: No aggressive lytic or sclerotic process seen. CT/CT abdomen pelvis wo IV con IMPRESSION: Moderate constipation without obstruction. There are postsurgical changes left epigastric region and left midabdomen. Moderate amount of stool is seen right lower quadrant. Appendix is not seen. No inflammatory process in the abdomen at this time. Likely right ovarian cysts with a retroverted uterus with IUD in place. Small soft tissue density in the anterior abdominal wall likely related to previous surgery. Fleischner guidelines were followed.
[2022-09-02 10:44] VITALS: BP 130/83; PULSE 82; RESP 20; TEMP 36.4; O2SAT 99; BMI 19.1
--- NOTE | 2022-09-02 11:15 | ED.ABDPAIN ---
HPI - Abdominal Pain General Chief Complaint: Abdominal Pain Stated Complaint: vomiting, abd pain Time Seen by Provider: 09/02/22 11:15 Source: patient and RN notes reviewed Mode of arrival: ambulatory Limitations: no limitations History of Present Illness HPI narrative: This is a 42-year-old female, with a past medical history of gastric bypass, ADHD, anxiety, asthma, depression, GERD, hypothyroidism, and kidney stones, who presents to the emergency department today with complaints of worsening left lower abdominal pain, nausea, and vomiting x 2 days. Patient was seen on 08/31/22 for these symptoms had normal labs and was discharged on Reglan. Patient reports that she was unable to start the Reglan as she did not pick it up from the pharmacy. She has a history of a gastric bypass which was performed about 15 years ago at [facility]. Currently being followed by Dr. Saleh, was scheduled to have an appointment this morning however was advised to report to the ED for further evaluation. Last bowel movement 4-5 days ago. She denies any other complaints or concerns at this time. MD elicited complaint: abdominal pain Onset (ago): day(s) Pain Consistency: constant Location: diffuse Severity: moderate Quality: cramping and aching Radiation: LUQ, LLQ and epigastric Migration to: no migration Exacerbating factors: eating and vomiting Relieving factors: nothing Associated symptoms: nausea and vomiting Related Data Home Medications Medication Instructions Recorded Confirmed albuterol sulfate 90 mcg/actuation 2 puff PO DAILY 12/08/20 12/08/20 aerosol inhaler (ProAir HFA) clonazepam 2 mg tablet 2 mg PO TID 09/27/21 dextroamphetamine-amphetamine 30 1 tab PO BID 09/27/21 mg tablet levothyroxine 175 mcg tablet 175 mcg PO DAILY 09/27/21 nitrofurantoin 1 cap PO DAILY 09/27/21 monohydrate/macrocrystals 100 mg capsule tramadol 50 mg tablet 100 mg PO QID 09/27/21 valacyclovir 500 mg tablet 500 mg PO DAILY 09/27/21 duloxetine 30 mg capsule,delayed 30 mg PO DAILY 03/31/22 release naloxone 4 mg/actuation nasal spray 1 spray intranasal DAILY 08/01/22 Previous Rx's Medication Instructions Recorded ondansetron 8 mg disintegrating 8 mg PO Q8H #60 tabs 01/11/21 tablet omeprazole 40 mg capsule,delayed 40 mg PO BID #90 caps 03/31/22 release polyethylene glycol 3350 17 17 g PO BID #510 grams 03/31/22 gram/dose oral powder (Miralax) prochlorperazine 25 mg rectal 25 mg PA BID PRN nausea and 03/31/22 suppository vomiting #12 ea sucralfate 100 mg/mL oral 10 ml PO BID #1,000 mL 03/31/22 suspension (Carafate) food supplemt, lactose-reduced 1 ea PO BID malnutrition #14,220 mL 08/30/22 0.06 gram-1.5 kcal/mL oral liquid (Boost Plus) metoclopramide HCl 10 mg tablet 10 mg PO Q6H PRN nausea and 08/31/22 (Reglan) vomiting #15 tabs bisacodyl 10 mg rectal suppository 10 mg PA DAILY PRN constipation 09/02/22 (Dulcolax (bisacodyl)) #12 ea polyethylene glycol 3350 17 17 g PO DAILY #119 grams 09/02/22 gram/dose oral powder (Miralax) Allergies Allergy/AdvReac Type Severity Reaction Status Date / Time scallops Allergy Mild Unknown Verified 08/01/22 11:25 buspirone [From BUSPAR] Allergy Unknown UNKNOWN Verified 08/01/22 11:25 Review of Systems Review of Systems Yes all other systems are reviewed and are negative [facility] Past Medical History Medical History ADHD Anxiety disorder Asthma Depression GERD (gastroesophageal reflux disease) Hypothyroidism Kidney stones Surgical History History of lithotripsy Hx of cholecystectomy Hx of colonoscopy Hx of endoscopy Hx of gastric bypass Family History Family History Unknown No problems noted. Mother No problems noted. Social History Social History Alcohol intake: current Alcohol intake frequency: a few times a week Alcohol type: hard liquor Patient Tobacco Use Status: Current everyday Tobacco user Tobacco use type: Cigarette Cigarettes Per Day: 10 Smoked in Last 30 Days: Yes Second Hand Smoke Exposure: No Use of substances other than those prescribed or required for medical reasons: No Substance Use Type: Marijuana Any prior treatment program specific to substance use: No Advance Directives: No Advance Directives Information Provided: Yes Physical Exam ED Vital Signs: Vital Signs - 24 hr 09/02/22 10:44 09/02/22 11:48 09/02/22 13:53 Temperature 97.6 F Pulse Rate 82 78 80 Respiratory Rate 20 18 18 Blood Pressure 130/83 Pulse Oximetry 99 97 98 Oxygen Delivery Method Room Air Room Air 09/02/22 14:13 Temperature 97.7 F Pulse Rate 73 Respiratory Rate 16 Blood Pressure 132/89 Pulse Oximetry 98 Oxygen Delivery Method Room Air BMI result Body Mass Index 19.1 Appearance: Alert. Oriented X3. No acute distress. Eyes: Pupils equal, round and reactive to light. ENT: Pharynx normal. Neck: Normal inspection. Neck supple. CVS: Normal heart rate and rhythm. Pulses normal. S1S2 regular. Respiratory: No respiratory distress. Breath sounds normal. Lungs clear to auscultation bilaterally Abdomen: Abdomen is soft, Tenderness palpation in left lower quadrant with some guarding. No rebound. Skin: Skin warm and dry. Normal skin color. Normal skin turgor. No rashes. Extremities: No lower extremity edema. Neuro: Oriented X 3. No motor deficit. No sensory deficit. Course Course Course Narrative: 1200 - pt seen and evaluated. Labs, CT abdomen ordered. Patient medicated with IV fluids, zofran, and morphine. 1230 - pt developed hives after morphine administration, likely allergic, pt medicated with benadryl. 1335 - Hive resolved, patient sleeping comfortably. no vomiting at all here 1604 - CT w/ constipation, discussed results and management. stable for d/c home w/ laxatives. Medical Decision Making Medical Decision Making [facility] Narrative: This is a 42-year-old female, with a past medical history of gastric bypass, ADHD, anxiety, asthma, depression, GERD, hypothyroidism, and kidney stones presents to the emergency department for evaluation of worsening abdominal cramping, nausea and vomiting. Patient was seen here in for the symptoms 2 days ago and was discharged with Reglan, however the patient was unable to citrus picker this medication from pharmacy. Labs, CT abdomen, and UA ordered. Patient medicated with IV fluids, morphine 4mg IV, benadryl 50mg IV, and zofran 4mg IV. CT abdomen significant for constipation. Patient's vital signs remained stable at this time and patient is ready for discharge. Discussed with patient that her symptoms were likely due to constipation will treat with stool softeners and laxatives. Patient advised to follow up with Dr. Saleh. Patient understands and agrees with plan. Differential Diagnosis Differential Diagnoses: The differential diagnosis associated with the presentation includes gastritis, gastroenteritis, pylonephritis, UTI, choleliathiasis, cholecystitis, diverticulitis, diverticulosis, constipation, cyclical vomiting Lab Data MDM Lab Attestation statement: I reviewed the patient's lab results. Stable anemia, no major metabolic derangement, no evidence of dehydration 09/02/22 11:45 09/02/22 11:45 Labs: Lab Results 09/02/22 09/02/22 Range/Units 11:45 11:45 WBC 7.1 (4.8-10.8) X10*3/uL RBC 4.65 (4.20-5.50) X10*6/uL Hgb 10.7 L (12.0-16.0) g/dl Hct 33.9 L (37.0-47.0) % MCV 72.9 L (80.0-98.0) fL MCH 23.0 L (27.0-33.0) pg MCHC 31.6 (31.0-35.0) g/dl RDW 18.9 H (11.0-16.0) % Plt Count 273 D (160-400) X10*3/uL MPV 8.2 L (9.4-12.3) fL Immature Gran % (Auto) 0.4 (0.0-0.4) % Neut % (Auto) 89.6 H (45-73) % Lymph % (Auto) 7.2 L (20-40) % Alcorn % (Auto) 2.4 (2-11) % Eos % (Auto) 0.0 (0-4) % Baso % (Auto) 0.4 (0-2) % Lymph # (Auto) 0.5 L (1.2-4.9) X10*3/uL Alcorn # (Auto) 0.2 (0.1-1.2) X10*3/uL Eos # (Auto) 0.0 (0.0-0.4) X10*3/uL Baso # (Auto) 0.0 (0.0-0.2) X10*3/uL Abs Immat Gran (auto) 0.03 (0.00-0.03) X10*3/uL Absolute Neuts (auto) 6.4 (2.0-8.3) x10*3/uL Absolute Nucleated RBC 0.000 (0.0-0.012) X10*3/uL Nucleated RBC % (auto) 0.0 (0.0-0.2) /100WBC Sodium 139 (135-145) mmol/L Potassium 3.8 (3.3-5.1) mmol/L Chloride 106 (96-108) mmol/L Carbon Dioxide 27 (22-29) mmol/L Anion Gap 10 L (12-20) BUN 8 L (9-16) mg/dL Creatinine 0.70 (0.5-1.4) mg/dL Estim Creat Clear Calc 84.0 Estimated GFR > 60 Random Glucose 118 H (60-115) mg/dL Calcium 8.8 D (8.4-10.2) mg/dL Magnesium 1.9 (1.6-2.6) mg/dL Total Bilirubin 0.6 (0.0-1.0) mg/dL Direct Bilirubin 0.2 (0.0-0.5) mg/dL AST 17 (5-31) U/L ALT 17 (0-31) U/L Alkaline Phosphatase 58 (39-117) U/L Total Protein 6.1 L (6.5-8.0) g/dL Albumin 3.7 (3.5-5.0) g/dL Lipase 10 (8-78) U/L Independent Interpretation I performed an independent interpretation of an: CT Scan Interpretation: CT scan reviewed, no evidence of acute appendicitis, moderate stool observed in the colon. No evidence of bowel obstruction. Radiology Impression Discussion of test interpretation with radiology: I have reviewed the radiologist's reading. Radiologist Impression: FINDINGS: LUNG BASES: The visualized lung bases are unremarkable.? LIVER, GALLBLADDER, AND BILIARY TREE: The liver is normal in size, shape, and attenuation. No focal hepatic lesion or biliary ductal dilatation is present. The gallbladder has been surgically removed. The CBD is distended, 5 mm proximal and 8 mm in the distal segment. PANCREAS: Unremarkable? SPLEEN: Unremarkable? ADRENAL GLANDS: Unremarkable? KIDNEYS AND URETERS: The kidneys are normal in size, shape, and attenuation. There are bilateral nonobstructive radiopaque calculi. The largest calculi in the upper pole measures 4 mm and midpole right kidney cortex measures 3 mm. No caliectasis or hydronephrosis seen. BLADDER: Unremarkable? GASTROINTESTINAL TRACT: There is [id number] amount of stool seen in colon without significant distention. There are postsurgical changes in the left epigastric, likely gastric bypass and left midabdomen related to small bowel. No small bowel dilatation seen. Appendix is not seen. There is no free air or free fluid. ABDOMINAL WALL: There are postsurgical changes anterior abdominal wall with a soft tissue density, axial image 44/3. No evidence of hernia.? LYMPH NODES: Normal VASCULAR: Unremarkable PELVIC VISCERA: There is a hypodense lesion in the right adnexa measuring 3 cm and fluid density, likely ovarian cysts. A retroverted uterus with IUD is noted. No free fluid in the cul-de-sac. No abnormal pelvic lymph nodes.? OSSEOUS STRUCTURES: No aggressive lytic or sclerotic process seen.? CT/CT abdomen pelvis wo IV con IMPRESSION: Moderate constipation without obstruction. There are postsurgical changes left epigastric region and left midabdomen. Moderate amount of stool is seen right lower quadrant. Appendix is not seen. No inflammatory process in the abdomen at this time. ? Likely right ovarian cysts with a retroverted uterus with IUD in place. ? Small soft tissue density in the anterior abdominal wall likely related to previous surgery.? ? Fleischner guidelines were followed. Independent Historian Clinical information obtained from an independent historian. History obtained from or confirmed by: Spouse External Record Review External record reviewed: Outpatient record Prescription Management I considered prescription management with: Other (laxatives/bowel regimen) Medications Administered Discontinued Medications Generic Name Dose Route Start Last Admin Trade Name Freq PRN Reason Stop Dose Admin Diphenhydramine HCl 50 mg 09/02/22 11:42 09/02/22 11:46 Diphenhydramine Hcl 50 Mg/Ml Vial IVPUSH 09/02/22 11:43 50 mg ONCE ONE Administration Sodium Chloride 1,000 mls @ 999 mls/hr 09/02/22 11:30 09/02/22 11:35 Ns IVCONT 09/02/22 12:30 999 mls/hr .Q1H1M AINSLEY Administration Morphine Sulfate 4 mg 09/02/22 11:16 09/02/22 11:36 Morphine Sulfate 4 Mg/Ml Cartridge IVPUSH 09/02/22 11:17 4 mg ONCE ONE Administration Protocol Ondansetron HCl 4 mg 09/02/22 11:16 09/02/22 11:35 Ondansetron Hcl 4 Mg/2 Ml Vial IVPUSH 09/02/22 11:17 4 mg ONCE ONE Administration Critical Care Time Critical Care Time Critical Care Time: No Discharge Plan Discharge Clinical Impression: Constipation Patient Disposition: Home, Self-Care Instructions: Constipation (ED) Additional Instructions: Your CT scan showed that you are constipated. Take prescribed medication as prescribed. Drink plenty of fluids and get plenty of rest. Follow up with Dr. Saleh regarding this visit. If you develop new or worsening symptoms call 911 or come back to the ER for further evaluation. Prescriptions: New polyethylene glycol 3350 [Miralax] 17 gram/dose powder 17 g PO DAILY Qty: 119 0RF bisacodyl [Dulcolax (bisacodyl)] 10 mg suppository 10 mg PA DAILY PRN (Reason: constipation) Qty: 12 0RF No Action Boost Plus 0.06 gram- 1.5 kcal/mL liquid 1 ea PO BID Qty: 68202 2RF Rx Instructions: drink 237 oz twice a day albuterol sulfate [ProAir HFA] 90 mcg/actuation HFA aerosol inhaler 2 puff PO DAILY metoclopramide HCl [Reglan] 10 mg tablet 10 mg PO Q6H PRN (Reason: nausea and vomiting) Qty: 15 0RF Rx Instructions: use bonly as needed for nausea/vomiting ondansetron 8 mg tablet,disintegrating 8 mg PO Q8H Qty: 60 2RF naloxone 4 mg/actuation spray,non-aerosol 1 spray intranasal DAILY levothyroxine 175 mcg tablet 175 mcg PO DAILY valacyclovir 500 mg tablet 500 mg PO DAILY nitrofurantoin monohyd/m-cryst 100 mg capsule 1 cap PO DAILY clonazepam 2 mg tablet 2 mg PO TID tramadol 50 mg tablet 100 mg PO QID dextroamphetamine-amphetamine 30 mg tablet 1 tab PO BID duloxetine 30 mg capsule,delayed release(DR/EC) 30 mg PO DAILY omeprazole 40 mg capsule,delayed release(DR/EC) 40 mg PO BID Qty: 90 3RF sucralfate [Carafate] 100 mg/mL suspension 10 ml PO BID Qty: 1000 4RF polyethylene glycol 3350 [Miralax] 17 gram/dose powder 17 g PO BID Qty: 510 1RF prochlorperazine 25 mg suppository 25 mg PA BID PRN (Reason: nausea and vomiting) Qty: 12 0RF Interventions: ED Discharge Assessment Last Done: 09/02/22 16:23 Discharge Date/Time: 09/02/22 16:24
[2022-09-02] MEDS: ondansetron HCL 4 MG/2 ML VIAL IVPUSH (11:35)
[2022-09-02] MEDS: 0.9 % Sodium Chloride 1,000 ML 999 ML IVCONT (11:35)
[2022-09-02] MEDS: Morphine Sulfate 4 MG/ML CARTRIDGE IVPUSH (11:36)
[2022-09-02] MEDS: diphenhydrAMINE HCL 50 MG/ML VIAL IVPUSH (11:46)
[2022-09-02 11:48] VITALS: PULSE 78; RESP 18; O2SAT 97
[2022-09-02 11:52] LABS: MANUAL DIFF FLAG NO
[2022-09-02 11:54] LABS: Basophils Percent Auto 0.4 % (0-2); Hematocrit 33.9 % (37.0-47.0); Hemoglobin 10.7 g/dl (12.0-16.0); Imm Gran Abs Auto 0.03 X10*3/uL (0.00-0.03); Imm Gran Pct Auto 0.4 % (0.0-0.4); Lymphocytes Absolute Auto 0.5 X10*3/uL (1.2-4.9); Lymphocytes Percent Auto 7.2 % (20-40); Mean Corpuscular HGB Conc 31.6 g/dl (31.0-35.0); Mean Corpuscular Volume 72.9 fL (80.0-98.0); Mean Platelet Volume 8.2 fL (9.4-12.3); Monocytes Absolute Auto 0.2 X10*3/uL (0.1-1.2); Monocytes Percent Auto 2.4 % (2-11); Neutrophils Absolute Auto 6.4 x10*3/uL (2.0-8.3); Neutrophils Percent Auto 89.6 % (45-73); Platelet Count 273 X10*3/uL (160-400); Red Blood Count 4.65 X10*6/uL (4.20-5.50); Red Cell Distribution Width 18.9 % (11.0-16.0); White Blood Count 7.1 X10*3/uL (4.8-10.8)
[2022-09-02 12:07] LABS: Alanine Aminotransferase 17 U/L (0-31); Albumin Level 3.7 g/dL (3.5-5.0); Alkaline Phosphatase 58 U/L (39-117); Anion Gap 10 (12-20); Aspartate Amino Transferase 17 U/L (5-31); Bilirubin Direct 0.2 mg/dL (0.0-0.5); Bilirubin Total 0.6 mg/dL (0.0-1.0); Blood Urea Nitrogen 8 mg/dL (9-16); Calcium 8.8 mg/dL (8.4-10.2); Carbon Dioxide 27 mmol/L (22-29); Chloride 106 mmol/L (96-108); Estimated Glomerular Filt Rate > 60; Glucose Random 118 mg/dL (60-115); Lipase 10 U/L (8-78); Magnesium 1.9 mg/dL (1.6-2.6); Potassium 3.8 mmol/L (3.3-5.1); Sodium 139 mmol/L (135-145); Total Protein 6.1 g/dL (6.5-8.0)
[2022-09-02 13:53] VITALS: PULSE 80; RESP 18; O2SAT 98
[2022-09-02 14:13] VITALS: BP 132/89; PULSE 73; RESP 16; TEMP 36.5; O2SAT 98
== END 2022-09-02 16:24 | disposition home or self-care (01) ==
PROVIDERS: Physician Assistant; Emergency Provider Emergency Medicine
DX: K59.00 Constipation, unspecified (principal); R10.31 Right lower quadrant pain; F17.210 Nicotine dependence, cigarettes, uncomplicated; Z71.6 Tobacco abuse counseling; Z79.899 Other long term (current) drug therapy
CPT/HCPCS: 36415; 74176; 80048; 80076; 83690; 83735; 85025; 96374; 96375; 99284; J1200; J2270; J2405

== ENCOUNTER 2022-09-13 13:36 | Emergency (ER) | payer MEDICAID, SELFPAY ==
--- NOTE | ~2022-09-13 | XR_ITS ---
EXAMINATION: XR CHEST CLINICAL INFORMATION: Sensation of withdrawal. COMPARISON: None available. TECHNIQUE: 2 views of the chest were obtained. FINDINGS: No significant abnormality is noted involving the heart, lungs, mediastinum, bony thorax or soft tissues. XR/XR chest 2V IMPRESSION: No acute cardiopulmonary process.
[2022-09-13 13:49] VITALS: BP 143/93; PULSE 97; RESP 22; TEMP 36.9; O2SAT 100; BMI 2029.9
--- NOTE | 2022-09-13 13:51 | ED_ITS ---
HPI - General Adult General Chief complaint: General Medical <SHAUN lAas - Last Filed: 09/13/22 13:55> Stated complaint: Withdrawals from medication <SHAUN Alas - Last Filed: 09/13/22 13:55> Time Seen by Provider: 09/13/22 14:27 <SHAUN Alas - Last Filed: 09/13/22 13:55> Source: patient and RN notes reviewed <Rod Fisher - Last Filed: 09/13/22 20:45> Mode of arrival: ambulatory <Rod Fisher - Last Filed: 09/13/22 20:45> Limitations: no limitations <Rod Fisher - Last Filed: 09/13/22 20:45> History of Present Illness HPI narrative: 52-year-old female past medical history significant for malnutrition, constipation, ADHD, anxiety, asthma, depression, hypothyroidism presents for evaluation of ?Cymbalta withdrawals. ? Patient reports that she is ?having both serotonin syndrome and Cymbalta withdrawals. Patient states that she ?lost 5 months not memory, have painful fingertips, high blood pressure, pains in my neck, delusions. ? She states that she has not taken her Cymbalta in the last 4 days and for week prior to that she was trying to wean herself off the medication She is not on any other SSRIs or SNRIs. Patient reports that 2 nights ago she could not breathe? I forgot how to swallow. ? She also states that she was unable to a heart consult because ?my muscles were not working properly. <Rod Fisher - Last Filed: 09/13/22 20:45> Related Data Home medications: Home Medications Medication Instructions Recorded Confirmed albuterol sulfate 90 mcg/actuation 2 puff PO DAILY 12/08/20 12/08/20 aerosol inhaler (ProAir HFA) clonazepam 2 mg tablet 2 mg PO TID 09/27/21 dextroamphetamine-amphetamine 30 1 tab PO BID 09/27/21 mg tablet levothyroxine 175 mcg tablet 175 mcg PO DAILY 09/27/21 nitrofurantoin 1 cap PO DAILY 09/27/21 monohydrate/macrocrystals 100 mg capsule tramadol 50 mg tablet 100 mg PO QID 04/11/22 valacyclovir 500 mg tablet 500 mg PO DAILY 09/27/21 duloxetine 30 mg capsule,delayed 30 mg PO DAILY 03/31/22 release naloxone 4 mg/actuation nasal spray 1 spray intranasal DAILY 08/01/22 Previous Rx's Medication Instructions Recorded ondansetron 8 mg disintegrating 8 mg PO Q8H #60 tabs 01/11/21 tablet omeprazole 40 mg capsule,delayed 40 mg PO BID #90 caps 03/31/22 release polyethylene glycol 3350 17 17 g PO BID #510 grams 03/31/22 gram/dose oral powder (Miralax) prochlorperazine 25 mg rectal 25 mg NJ BID PRN nausea and 03/31/22 suppository vomiting #12 ea sucralfate 100 mg/mL oral 10 ml PO BID #1,000 mL 03/31/22 suspension (Carafate) food supplemt, lactose-reduced 1 ea PO BID malnutrition #14,220 mL 08/30/22 0.06 gram-1.5 kcal/mL oral liquid (Boost Plus) metoclopramide HCl 10 mg tablet 10 mg PO Q6H PRN nausea and 08/31/22 (Reglan) vomiting #15 tabs bisacodyl 10 mg rectal suppository 10 mg NJ DAILY PRN constipation 09/02/22 (Dulcolax (bisacodyl)) #12 ea polyethylene glycol 3350 17 17 g PO DAILY #119 grams 09/02/22 gram/dose oral powder (Miralax) <SHAUN Alas - Last Filed: 09/13/22 13:55> Allergies/adverse reactions: Allergies Allergy/AdvReac Type Severity Reaction Status Date / Time scallops Allergy Mild Unknown Verified 08/01/22 11:25 buspirone [From BUSPAR] Allergy Unknown UNKNOWN Verified 08/01/22 11:25 <SHAUN Alas - Last Filed: 09/13/22 13:55> Review of Systems Constitutional: Constitutional: Reports anorexia, Reports body ache(s), Reports chills, Reports fatigue, Denies fever(s), Denies headache(s) and Reports malaise <Rod Fisher - Last Filed: 09/13/22 20:45> Eyes: Eyes: Denies blurry vision <Rod Fisher - Last Filed: 09/13/22 20:45> ENT: Reports Normal hearing present, Reports dry mouth, Denies headache(s), Reports neck pain and Denies nose pain <Rod Saly - Last Filed: 09/13/22 20:45> Cardiovascular: Cardiovascular: Reports cool extremities, Reports painful fingertips, Denies chest pain, Denies syncope, Denies dyspnea and Denies dyspnea on exertion <Rod Carrasco[place]anoose - Last Filed: 09/13/22 20:45> Respiratory: Respiratory: Denies dyspnea and Denies dyspnea on exertion <Rod Danilo - Last Filed: 09/13/22 20:45> Gastrointestinal: Gastrointestinal: Denies abdominal pain, Reports constipation, Denies diarrhea, Denies nausea and Denies vomiting <Rod ORommel - Last Filed: 09/13/22 20:45> Musculoskeletal: Musculoskeletal: Reports neck pain <Rod O Last Filed: 09/13/22 20:45> Integumentary/Breasts: Skin/Breast: Denies rash <Rod [place]ose - Last Filed: 09/13/22 20:45> Neurologic: Reports Normal hearing present, Denies syncope and Denies heada saúl(s) <Rod Saly - Last Filed: 09/13/22 20:45> Psychiatric: Psychiatric: Reports anxiety <Rod CarrascoRommel - Last Filed: 09/13/22 20:45> Endocrine: Endocrine: Reports fatigue <Rod Carrasco - Last Filed: 09/13/22 20:45> [facility] Past Medical History Medical History: Medical History ADHD Anxiety disorder Asthma Depression GERD (gastroesophageal reflux disease) Hypothyroidism Kidney stones <SHAUN Alas - Last Filed: 09/13/22 13:55> Surgical History: Surgical History History of lithotripsy Hx of cholecystectomy Hx of colonoscopy Hx of endoscopy Hx of gastric bypass <SHAUN Alas - Last Filed: 09/13/22 13:55> Family History Family History: Family History Unknown No problems noted. Mother No problems noted. <SHAUN Alas - Last Filed: 09/13/22 13:55> Social History Social History: Social History Alcohol intake: current Alcohol intake frequency: a few times a week Alcohol type: hard liquor Patient Tobacco Use Status: Current everyday Tobacco user Tobacco use type: Cigarette Cigarettes Per Day: 10 Second Hand Smoke Exposure: No Substance Use Type: Marijuana Advance Directives: No Advance Directives Information Provided: Yes <SHAUN Alas - Last Filed: 09/13/22 13:55> Physical Exam ED Vital Signs: Vital Signs - 24 hr 09/13/22 13:49 Temperature 98.5 F Pulse Rate 97 Respiratory Rate 22 H Blood Pressure 143/93 H Pulse Oximetry 100 Oxygen Delivery Method Room Air BMI result Body Mass Index 9.9 <SHAUN Alas - Last Filed: 09/13/22 13:55> Vital Signs - 24 hr 09/13/22 13:49 Temperature 98.5 F Pulse Rate 97 Respiratory Rate 22 H Blood Pressure 143/93 H Pulse Oximetry 100 Oxygen Delivery Method Room Air BMI result Body Mass Index 9.9 <Rod Fisher - Last Filed: 09/13/22 20:45> Const General: healthy appearing, comfortable, no acute distress, alert and awake <Rod Fisher - Last Filed: 09/13/22 20:45> Nutritional Appearance: well nourished, thin and underweight <Rod Fisher - Last Filed: 09/13/22 20:45> Orientation/consciousness: patient oriented x3 <Rod Fisher - Last Filed: 09/13/22 20:45> HENMT Mouth: Normal oral and palatal mucosa present, lip normal and tongue normal <Rod Fisher - Last Filed: 09/13/22 20:45> Throat: Yes posterior oropharynx normal <Rod Fisher - Last Filed: 09/13/22 20:45> Eyes Eyelids: Yes eyelids normal <Rod Fisher - Last Filed: 09/13/22 20:45> Conjunctivae: conjunctivae normal <Rod Fisher - Last Filed: 09/13/22 20:45> Sclerae: sclerae normal <Rod Last Filed: 09/13/22 20:45> Corneas: corneas normal <Rod Last Filed: 09/13/22 20:45> Pupils: Equal, round and reactive pupils present <Rod Last Filed: 09/13/22 20:45> EOM: EOMs intact bilaterally < Last Filed: 09/13/22 20:45> Neck Neck: Yes full ROM < Last Filed: 09/13/22 20:45> Resp Effort & Inspection: normal respiratory effort, able to speak in complete sentences, no audible wheezes and not labored <Rod Last Filed: 09/13/22 20:45> Auscultation: clear to auscultation bilaterally < Last Filed: 09/13/22 20:45> Cardio Rate: regular rate < Last Filed: 09/13/22 20:45> Rhythm: regular rhythm < Last Filed: 09/13/22 20:45> GI Inspection: No distended <Rod Last Filed: 09/13/22 20:45> Skin General skin exam: no rashes or lesions noted and elasticity normal < Last Filed: 09/13/22 20:45> Lesions: no lesions < Last Filed: 09/13/22 20:45> Rashes: no rashes < Last Filed: 09/13/22 20:45> Neuro General: patient oriented x3 < Last Filed: 09/13/22 20:45> Cranial nerves: Yes CN's II-XII intact bilaterally, Yes Equal, round and reactive pupils present and Yes Normal hearing present <Rod Last Filed: 09/13/22 20:45> Motor exam (neuro): no tremor noted, no asterixis, Motor fasciculations not present, Normal motor muscle tone present throughout, no tremors and No Asterixis during motor activity present <Rod Fisher - Last Filed: 09/13/22 20:45> Extrem Other: Moving all extremities well without deformities <Rod Fisher Last Filed: 09/13/22 20:45> General: Yes full ROM <Rod Sal Last Filed: 09/13/22 20:45> Psych Appearance: well kempt <Rodmarcia Sal Last Filed: 09/13/22 20:45> Speech and movement: Clear speech present <Rod Sal Last Filed: 09/13/22 20:45> Affect: Anxious affect present <Rod Fisher Last Filed: 09/13/22 20:45> Attitude: cooperative <Rod Sal Last Filed: 09/13/22 20:45> Course Course Course Narrative: RME-13:50pm - 52yoF with a past medical history of gastric bypass, ADHD, anxiety, asthma, depression, GERD, hypothyroidism, and kidney stones who is presenting to the ER reporting ?I think I am suffering from serotonin syndrome and withdrawing from not taking Cymbalta?. Reports that she last took Cymbalta 4 days ago she was weaning herself off. She reports that she is very paranoid, anxious she has had high blood pressure she has shortness of breath, palpitations every symptom is set for diarrhea. Reports that she is feeling that her throat is closing up. Very anxious here in triage with gloves on. Denies any SI or HI. Reports that every ER she goes to they do not even know with serotonin syndrome is. I explained to her we do know with serotonin syndrome is that she does not have to worry about that. Plan: Labs, UA ordered at this time along with EKG patient to be sent to the ER for further evaluation treatment. <SHAUN Alas - Last Filed: 09/13/22 13:55> Reevaluation(s) Reevaluation #1: Patient's workup largely unremarkable, vital signs remained stable. The patient remains quite anxious. I tried to educate the patient that it is impossible to have bowel serotonin syndrome and Cymbalta withdrawal at the same time. The patient has no objective findings of serotonin syndrome at this time. He does remain quite anxious. The patient will follow-up with her PCP. I advised the patient not to make any further medication adjustments with her doctors knowledge <Rod Fisher - Last Filed: 09/13/22 20:45> Time: 15:41 <Rod Fisher - Last Filed: 09/13/22 20:45> Medical Decision Making Medical Decision Making MDM Narrative: 52-year-old female presents for evaluation of numerous complaints. She seems very anxious about her antidepressant prescriptions. She stopped her C ymbalta on around 4 days ago and reports that she has been trying to wean herself off for a week prior to this. Patient's blood pressure is 143/93 which she reports is ?through the roof for me. ? She does not exhibit any signs of serotonin syndrome. She is not diaphoretic or tachycardic. There is no muscle rigidity rigidity. No clonus. When asked the patient why she did not come the hospital 2 days ago when she said that she could not swallow she did not have an answer. I explained to the patient I could not explain what happened 2 days ago if asthma and with to evaluate the patient, but today she does not appear to be exhibiting any signs of serotonin syndrome. Will check labs to rule out any metabolic causes of her symptoms. I do wound patient's most likely diagnosis is anxiety <Rod Fisher - Last Filed: 09/13/22 20:45> Differential Diagnosis Anxiety Medication noncompliance Serotonin syndrome Antidepressant discontinuation syndrome <Rod Fisher - Last Filed: 09/13/22 20:45> Lab Data Result Diagrams: 09/13/22 14:14 09/13/22 14:15 <SHAUN Alas - Last Filed: 09/13/22 13:55> Labs: Lab Results 09/13/22 09/13/22 09/13/22 Range/Units 14:14 14:14 14:15 WBC 6.1 (4.8-10.8) X10*3/uL RBC 4.46 (4.20-5.50) X10*6/uL Hgb 10.0 L (12.0-16.0) g/dl Hct 33.1 L (37.0-47.0) % MCV 74.2 L (80.0-98.0) fL MCH 22.4 L (27.0-33.0) pg MCHC 30.2 L (31.0-35.0) g/dl RDW 19.9 H (11.0-16.0) % Plt Count 293 (160-400) X10*3/uL MPV 8.6 L (9.4-12.3) fL Immature Gran % (Auto) 0.3 (0.0-0.4) % Neut % (Auto) 70.9 (45-73) % Lymph % (Auto) 17.7 L (20-40) % [place] % (Auto) 9.2 (2-11) % Eos % (Auto) 1.1 (0-4) % Baso % (Auto) 0.8 (0-2) % Lymph # (Auto) 1.1 L (1.2-4.9) X10*3/uL [place] # (Auto) 0.6 (0.1-1.2) X10*3/uL Eos # (Auto) 0.1 (0.0-0.4) X10*3/uL Baso # (Auto) 0.1 (0.0-0.2) X10*3/uL Abs Immat Gran (auto) 0.02 (0.00-0.03) X10*3/uL Absolute Neuts (auto) 4.3 (2.0-8.3) x10*3/uL Absolute Nucleated RBC 0.000 (0.0-0.012) X10*3/uL Nucleated RBC % (auto) 0.0 (0.0-0.2) /100WBC PT 9.9 L (10.0-13.1) SEC INR 0.9 (0.9-1.1) Sodium 139 (135-145) mmol/L Potassium 4.2 (3.3-5.1) mmol/L Chloride 110 H (96-108) mmol/L Carbon Dioxide 25 (22-29) mmol/L Anion Gap 8 L (12-20) BUN 10 (9-16) mg/dL Creatinine 0.69 (0.5-1.4) mg/dL Estim Creat Clear Calc -38.6 Estimated GFR > 60 Random Glucose 87 (60-115) mg/dL Calcium 8.5 (8.4-10.2) mg/dL Magnesium 2.1 (1.6-2.6) mg/dL Total Bilirubin 0.4 (0.0-1.0) mg/dL AST 14 (5-31) U/L ALT 13 (0-31) U/L Alkaline Phosphatase 64 (39-117) U/L Total Protein 5.7 L (6.5-8.0) g/dL Albumin 3.5 (3.5-5.0) g/dL Lipase 27 (8-78) U/L Beta HCG, Quant mIU/mL Ethyl Alcohol mg/dL Influenza Type A (PCR) (Negative) Influenza Type B (PCR) (Negative) RSV RNA Qual (PCR) (Negative) SARS-CoV-2 RNA (RT-PCR) (Negative) 09/13/22 09/13/22 Range/Units 14:15 14:15 WBC (4.8-10.8) X10*3/uL RBC (4.20-5.50) X10*6/uL Hgb (12.0-16.0) g/dl Hct (37.0-47.0) % MCV (80.0-98.0) fL MCH (27.0-33.0) pg MCHC (31.0-35.0) g/dl RDW (11.0-16.0) % Plt Count (160-400) X10*3/uL MPV (9.4-12.3) fL Immature Gran % (Auto) (0.0-0.4) % Neut % (Auto) (45-73) % Lymph % (Auto) (20-40) % [place] % (Auto) (2-11) % Eos % (Auto) (0-4) % Baso % (Auto) (0-2) % Lymph # (Auto) (1.2-4.9) X10*3/uL [place] # (Auto) (0.1-1.2) X10*3/uL Eos # (Auto) (0.0-0.4) X10*3/uL Baso # (Auto) (0.0-0.2) X10*3/uL Abs Immat Gran (auto) (0.00-0.03) X10*3/uL Absolute Neuts (auto) (2.0-8.3) x10*3/uL Absolute Nucleated RBC (0.0-0.012) X10*3/uL Nucleated RBC % (auto) (0.0-0.2) /100WBC PT (10.0-13.1) SEC INR (0.9-1.1) Sodium (135-145) mmol/L Potassium (3.3-5.1) mmol/L Chloride (96-108) mmol/L Carbon Dioxide (22-29) mmol/L Anion Gap (12-20) BUN (9-16) mg/dL Creatinine (0.5-1.4) mg/dL Estim Creat Clear Calc Estimated GFR Random Glucose (60-115) mg/dL Calcium (8.4-10.2) mg/dL Magnesium (1.6-2.6) mg/dL Total Bilirubin (0.0-1.0) mg/dL AST (5-31) U/L ALT (0-31) U/L Alkaline Phosphatase (39-117) U/L Total Protein (6.5-8.0) g/dL Albumin (3.5-5.0) g/dL Lipase (8-78) U/L Beta HCG, Quant < 2 mIU/mL Ethyl Alcohol < 10 mg/dL Influenza Type A (PCR) NEGATIVE (Negative) Influenza Type B (PCR) NEGATIVE (Negative) RSV RNA Qual (PCR) NEGATIVE (Negative) SARS-CoV-2 RNA (RT-PCR) NEGATIVE (Negative) <SHAUN Alas - Last Filed: 09/13/22 13:55> Lab Results 09/13/22 09/13/22 09/13/22 Range/Units 14:14 14:14 14:15 WBC 6.1 (4.8-10.8) X10*3/uL RBC 4.46 (4.20-5.50) X10*6/uL Hgb 10.0 L (12.0-16.0) g/dl Hct 33.1 L (37.0-47.0) % MCV 74.2 L (80.0-98.0) fL MCH 22.4 L (27.0-33.0) pg MCHC 30.2 L (31.0-35.0) g/dl RDW 19.9 H (11.0-16.0) % Plt Count 293 (160-400) X10*3/uL MPV 8.6 L (9.4-12.3) fL Immature Gran % (Auto) 0.3 (0.0-0.4) % Neut % (Auto) 70.9 (45-73) % Lymph % (Auto) 17.7 L (20-40) % [place] % (Auto) 9.2 (2-11) % Eos % (Auto) 1.1 (0-4) % Baso % (Auto) 0.8 (0-2) % Lymph # (Auto) 1.1 L (1.2-4.9) X10*3/uL [place] # (Auto) 0.6 (0.1-1.2) X10*3/uL Eos # (Auto) 0.1 (0.0-0.4) X10*3/uL Baso # (Auto) 0.1 (0.0-0.2) X10*3/uL Abs Immat Gran (auto) 0.02 (0.00-0.03) X10*3/uL Absolute Neuts (auto) 4.3 (2.0-8.3) x10*3/uL Absolute Nucleated RBC 0.000 (0.0-0.012) X10*3/uL Nucleated RBC % (auto) 0.0 (0.0-0.2) /100WBC PT 9.9 L (10.0-13.1) SEC INR 0.9 (0.9-1.1) Sodium 139 (135-145) mmol/L Potassium 4.2 (3.3-5.1) mmol/L Chloride 110 H (96-108) mmol/L Carbon Dioxide 25 (22-29) mmol/L Anion Gap 8 L (12-20) BUN 10 (9-16) mg/dL Creatinine 0.69 (0.5-1.4) mg/dL Estim Creat Clear Calc -38.6 Estimated GFR > 60 Random Glucose 87 (60-115) mg/dL Calcium 8.5 (8.4-10.2) mg/dL Magnesium 2.1 (1.6-2.6) mg/dL Total Bilirubin 0.4 (0.0-1.0) mg/dL AST 14 (5-31) U/L ALT 13 (0-31) U/L Alkaline Phosphatase 64 (39-117) U/L Total Protein 5.7 L (6.5-8.0) g/dL Albumin 3.5 (3.5-5.0) g/dL Lipase 27 (8-78) U/L Beta HCG, Quant mIU/mL Ethyl Alcohol mg/dL Influenza Type A (PCR) (Negative) Influenza Type B (PCR) (Negative) RSV RNA Qual (PCR) (Negative) SARS-CoV-2 RNA (RT-PCR) (Negative) 09/13/22 09/13/22 Range/Units 14:15 14:15 WBC (4.8-10.8) X10*3/uL RBC (4.20-5.50) X10*6/uL Hgb (12.0-16.0) g/dl Hct (37.0-47.0) % MCV (80.0-98.0) fL MCH (27.0-33.0) pg MCHC (31.0-35.0) g/dl RDW (11.0-16.0) % Plt Count (160-400) X10*3/uL MPV (9.4-12.3) fL Immature Gran % (Auto) (0.0-0.4) % Neut % (Auto) (45-73) % Lymph % (Auto) (20-40) % [place] % (Auto) (2-11) % Eos % (Auto) (0-4) % Baso % (Auto) (0-2) % Lymph # (Auto) (1.2-4.9) X10*3/uL [place] # (Auto) (0.1-1.2) X10*3/uL Eos # (Auto) (0.0-0.4) X10*3/uL Baso # (Auto) (0.0-0.2) X10*3/uL Abs Immat Gran (auto) (0.00-0.03) X10*3/uL Absolute Neuts (auto) (2.0-8.3) x10*3/uL Absolute Nucleated RBC (0.0-0.012) X10*3/uL Nucleated RBC % (auto) (0.0-0.2) /100WBC PT (10.0-13.1) SEC INR (0.9-1.1) Sodium (135-145) mmol/L Potassium (3.3-5.1) mmol/L Chloride (96-108) mmol/L Carbon Dioxide (22-29) mmol/L Anion Gap (12-20) BUN (9-16) mg/dL Creatinine (0.5-1.4) mg/dL Estim Creat Clear Calc Estimated GFR Random Glucose (60-115) mg/dL Calcium (8.4-10.2) mg/dL Magnesium (1.6-2.6) mg/dL Total Bilirubin (0.0-1.0) mg/dL AST (5-31) U/L ALT (0-31) U/L Alkaline Phosphatase (39-117) U/L Total Protein (6.5-8.0) g/dL Albumin (3.5-5.0) g/dL Lipase (8-78) U/L Beta HCG, Quant < 2 mIU/mL Ethyl Alcohol < 10 mg/dL Influenza Type A (PCR) NEGATIVE (Negative) Influenza Type B (PCR) NEGATIVE (Negative) RSV RNA Qual (PCR) NEGATIVE (Negative) SARS-CoV-2 RNA (RT-PCR) NEGATIVE (Negative) <Rod Fisher - Last Filed: 09/13/22 20:45> Discharge Plan Discharge Clinical Impression: Anxiety <SHAUN Alas - Last Filed: 09/13/22 13:55> Patient Disposition: Home, Self-Care <SHAUN Alas - Last Filed: 09/13/22 13:55> Additional Instructions: Your workup in the emergency department today was reassuring. You do not have serotonin syndrome. Some your symptoms may be related to antidepressant discontinuation syndrome. However I would not recommend restarting the Cymbalta. Talk to your doctor about the next best step for you <SHAUN Alas - Last Filed: 09/13/22 13:55> Prescriptions: No Action Boost Plus 0.06 gram- 1.5 kcal/mL liquid 1 ea PO BID Qty: 28748 2RF Rx Instructions: drink 237 oz twice a day albuterol sulfate [ProAir HFA] 90 mcg/actuation HFA aerosol inhaler 2 puff PO DAILY polyethylene glycol 3350 [Miralax] 17 gram/dose powder 17 g PO DAILY Qty: 119 0RF bisacodyl [Dulcolax (bisacodyl)] 10 mg suppository 10 mg NJ DAILY PRN (Reason: constipation) Qty: 12 0RF metoclopramide HCl [Reglan] 10 mg tablet 10 mg PO Q6H PRN (Reason: nausea and vomiting) Qty: 15 0RF Rx Instructions: use bonly as needed for nausea/vomiting ondansetron 8 mg tablet,disintegrating 8 mg PO Q8H Qty: 60 2RF naloxone 4 mg/actuation spray,non-aerosol 1 spray intranasal DAILY levothyroxine 175 mcg tablet 175 mcg PO DAILY valacyclovir 500 mg tablet 500 mg PO DAILY nitrofurantoin monohyd/m-cryst 100 mg capsule 1 cap PO DAILY clonazepam 2 mg tablet 2 mg PO TID tramadol 50 mg tablet 100 mg PO QID dextroamphetamine-amphetamine 30 mg tablet 1 tab PO BID duloxetine 30 mg capsule,delayed release(DR/EC) 30 mg PO DAILY omeprazole 40 mg capsule,delayed release(DR/EC) 40 mg PO BID Qty: 90 3RF sucralfate [Carafate] 100 mg/mL suspension 10 ml PO BID Qty: 1000 4RF polyethylene glycol 3350 [Miralax] 17 gram/dose powder 17 g PO BID Qty: 510 1RF prochlorperazine 25 mg suppository 25 mg NJ BID PRN (Reason: nausea and vomiting) Qty: 12 0RF <SHAUN Alas - Last Filed: 09/13/22 13:55> Interventions: ED Discharge Assessment Last Done: 09/13/22 16:09 <SHAUN Alas - Last Filed: 09/13/22 13:55> Discharge Date/Time: 09/13/22 16:10 <SHAUN Alas - Last Filed: 09/13/22 13:55>
--- NOTE | 2022-09-13 13:53 | ECG_ITS ---
Test Reason : WITHDRAWALS Blood Pressure : / mmHG Vent. Rate : 092 BPM Atrial Rate : 092 BPM P-R Int : 130 ms QRS Dur : 094 ms QT Int : 346 ms P-R-T Axes : 057 061 056 degrees QTc Int : 427 ms Normal sinus rhythm Normal ECG When compared with ECG of 18-JUL-2022 18:05, No significant change was found Referred By: Lynette Jaime Electronically Signed By:EMILIANO PANDEY
[2022-09-13 14:23] LABS: MANUAL DIFF FLAG NO
[2022-09-13 14:28] LABS: Basophils Absolute Auto 0.1 X10*3/uL (0.0-0.2); Basophils Percent Auto 0.8 % (0-2); Eosinophils Absolute Auto 0.1 X10*3/uL (0.0-0.4); Eosinophils Percent Auto 1.1 % (0-4); Hematocrit 33.1 % (37.0-47.0); Imm Gran Abs Auto 0.02 X10*3/uL (0.00-0.03); Imm Gran Pct Auto 0.3 % (0.0-0.4); Lymphocytes Absolute Auto 1.1 X10*3/uL (1.2-4.9); Lymphocytes Percent Auto 17.7 % (20-40); Mean Corpuscular HGB Conc 30.2 g/dl (31.0-35.0); Mean Corpuscular Hemoglobin 22.4 pg (27.0-33.0); Mean Corpuscular Volume 74.2 fL (80.0-98.0); Mean Platelet Volume 8.6 fL (9.4-12.3); Monocytes Absolute Auto 0.6 X10*3/uL (0.1-1.2); Monocytes Percent Auto 9.2 % (2-11); Neutrophils Absolute Auto 4.3 x10*3/uL (2.0-8.3); Neutrophils Percent Auto 70.9 % (45-73); Platelet Count 293 X10*3/uL (160-400); Red Blood Count 4.46 X10*6/uL (4.20-5.50); Red Cell Distribution Width 19.9 % (11.0-16.0); White Blood Count 6.1 X10*3/uL (4.8-10.8)
[2022-09-13 14:43] LABS: INTERNATIONAL NORM RATIO 0.9 (0.9-1.1); Prothrombin Time 9.9 SEC (10.0-13.1)
[2022-09-13 15:01] LABS: Alanine Aminotransferase 13 U/L (0-31); Albumin Level 3.5 g/dL (3.5-5.0); Alkaline Phosphatase 64 U/L (39-117); Anion Gap 8 (12-20); Aspartate Amino Transferase 14 U/L (5-31); Bilirubin Total 0.4 mg/dL (0.0-1.0); Blood Urea Nitrogen 10 mg/dL (9-16); Calcium 8.5 mg/dL (8.4-10.2); Carbon Dioxide 25 mmol/L (22-29); Chloride 110 mmol/L (96-108); Estimated Glomerular Filt Rate > 60; Glucose Random 87 mg/dL (60-115); Lipase 27 U/L (8-78); Magnesium 2.1 mg/dL (1.6-2.6); Potassium 4.2 mmol/L (3.3-5.1); Sodium 139 mmol/L (135-145); Total Protein 5.7 g/dL (6.5-8.0)
[2022-09-13 15:08] LABS: Ethanol < 10 mg/dL; HCG Quantitative < 2 mIU/mL
[2022-09-13 15:12] LABS: Influenza A PCR NEGATIVE (Negative); Influenza B PCR NEGATIVE (Negative); Resp Syncy Virus RNA Qual PCR NEGATIVE (Negative); SARS COV2 PCR INHOUSE NEGATIVE (Negative)
== END 2022-09-13 16:10 | disposition home or self-care (01) ==
PROVIDERS: Physician Assistant Medical; Emergency Provider Emergency Medicine; PCP Internal Medicine
DX: F41.9 Anxiety disorder, unspecified (principal); F17.210 Nicotine dependence, cigarettes, uncomplicated; F12.90 Cannabis use, unspecified, uncomplicated; Z20.822 Contact with and (suspected) exposure to COVID-19; Z20.828 Contact with and (suspected) exposure to other viral communicable diseases; Z79.899 Other long term (current) drug therapy
CPT/HCPCS: 0241U; 36415; 71046; 80053; 82077; 83690; 83735; 84702; 85025; 85610; 93005; 99283

== ENCOUNTER 2023-09-25 09:48 | Day surgery (SDC) | payer MEDICAID, SELFPAY ==
--- NOTE | 2023-09-21 13:22 | HO.ANESPROP2 ---
Documented by User: Carmina Wooten NP 09/21/23 13:22 HPI - Anesthesia Eval Consult details Narrative: 53yo F for Upper Endoscopy PMFSH Active Problems Active Problems: All Active Problems Malnutrition (Acute) Constipation (Acute) Acute anastomotic ulcer of gastrojejunal region (Acute) Past Medical History Medical History Kidney stones Hypothyroidism GERD (gastroesophageal reflux disease) Depression Anxiety disorder Asthma ADHD Family History Family History Unknown No problems noted. Mother No problems noted. Surgical History Surgical History History of lithotripsy Hx of colonoscopy Hx of cholecystectomy Hx of endoscopy Hx of gastric bypass Social History Social History Alcohol intake: current Alcohol intake frequency: a few times a week Alcohol type: hard liquor Patient Tobacco Use Status: Current everyday Tobacco user Tobacco use type: Cigarette Cigarettes Per Day: 12 Second Hand Smoke Exposure: No Use of substances other than those prescribed or required for medical reasons: Yes Substance Use Type: Marijuana Are you DNR?: No Advance Directives: No Advance Directives Information Provided: Yes Meds Allergies Allergy/AdvReac Type Severity Reaction Status Date / Time scallops Allergy Mild Hives Verified 09/25/23 10:22 buspirone [From BUSPAR] AdvReac Severe UNKNOWN Verified 09/25/23 10:22 selective serotonin reuptake Allergy Severe Unknown Uncoded 09/25/23 10:22 inhibi Home Medications ?Medication ?Instructions ?Recorded ?Confirmed ?Last Taken ?Type albuterol sulfate 90 mcg/actuation 2 puff PO DAILY 12/08/20 09/21/23 Unknown History aerosol inhaler (ProAir HFA) clonazepam 2 mg tablet 2 mg PO TID 09/27/21 09/21/23 Unknown History dextroamphetamine-amphetamine 30 1 tab PO BID 09/27/21 09/25/23 09/25/23 History mg tablet levothyroxine 175 mcg tablet 175 mcg PO DAILY 09/27/21 09/25/23 09/25/23 History nitrofurantoin 1 cap PO DAILY 09/27/21 Unknown History monohydrate/macrocrystals 100 mg capsule tramadol 50 mg tablet 100 mg PO QID 09/27/21 09/21/23 Unknown History valacyclovir 500 mg tablet 500 mg PO DAILY 09/27/21 09/21/23 Unknown History duloxetine 30 mg capsule,delayed 30 mg PO DAILY 03/31/22 09/21/23 Unknown History release naloxone 4 mg/actuation nasal spray 1 spray intranasal DAILY 08/01/22 Unknown History Exam Height,Weight and Vital Signs: Height 5 ft 6 in Assessment and Plan Assessment Anesthesia Assessment: Chart Reviewed Documented by User: Nguyen Jonas MD 09/25/23 10:33 PMFSH Past Medical History Medical History Kidney stones Hypothyroidism GERD (gastroesophageal reflux disease) Depression Anxiety disorder Asthma ADHD Family History Family History Unknown No problems noted. Mother No problems noted. Surgical History Surgical History History of lithotripsy Hx of colonoscopy Hx of cholecystectomy Hx of endoscopy Hx of gastric bypass History of Problems with Anesthesia: No Social History Social History Alcohol intake: current Alcohol intake frequency: a few times a week Alcohol type: hard liquor Patient Tobacco Use Status: Current everyday Tobacco user Tobacco use type: Cigarette Cigarettes Per Day: 12 Second Hand Smoke Exposure: No Use of substances other than those prescribed or required for medical reasons: Yes Substance Use Type: Marijuana Are you DNR?: No Advance Directives: No Advance Directives Information Provided: Yes Meds Allergies Allergy/AdvReac Type Severity Reaction Status Date / Time scallops Allergy Mild Hives Verified 09/25/23 10:22 buspirone [From BUSPAR] AdvReac Severe UNKNOWN Verified 09/25/23 10:22 selective serotonin reuptake Allergy Severe Unknown Uncoded 09/25/23 10:22 inhibi Home Medications ?Medication ?Instructions ?Recorded ?Confirmed ?Last Taken ?Type albuterol sulfate 90 mcg/actuation 2 puff PO DAILY 12/08/20 09/21/23 Unknown History aerosol inhaler (ProAir HFA) clonazepam 2 mg tablet 2 mg PO TID 09/27/21 09/21/23 Unknown History dextroamphetamine-amphetamine 30 1 tab PO BID 09/27/21 09/25/23 09/25/23 History mg tablet levothyroxine 175 mcg tablet 175 mcg PO DAILY 09/27/21 09/25/23 09/25/23 History nitrofurantoin 1 cap PO DAILY 09/27/21 Unknown History monohydrate/macrocrystals 100 mg capsule tramadol 50 mg tablet 100 mg PO QID 09/27/21 09/21/23 Unknown History valacyclovir 500 mg tablet 500 mg PO DAILY 09/27/21 09/21/23 Unknown History duloxetine 30 mg capsule,delayed 30 mg PO DAILY 03/31/22 09/21/23 Unknown History release naloxone 4 mg/actuation nasal spray 1 spray intranasal DAILY 08/01/22 Unknown History Exam Airway Mallampati Class: II TM Dist: >3cm Neck ROM: Full Loose/Missing/Broken Teeth: Yes and Upper Heart: RRR Lungs: CTA Assessment and Plan Assessment Anesthesia Assessment: Anesthesia Plan Discussed Final Anesthetic Review History of Problems with Anesthesia: No NPO: Yes ASA Class: II Final Preanesthetic Review: Meds/Allgs Chart Reviewed, Consent Obtained/Reviewed and Anes Risks/Benef Reviewed Patient Risk: Low Procedure Risk: Intermediate Anesthetic Plan Anesthetic Plan: MAC: Disposition: Standard PACU
--- NOTE | 2023-09-25 09:11 | MHC.SHP ---
Pre-Procedural Eval Section A - 24 Hr Update-Section A only Date of Service: 09/25/23 Section B - Complete if H&P > 30 days Chief Complaint: Gastrojejunal ulcer, as acute or chronic Details of Present Illness: having sensation of food sticking in chest, smoking, voice is more hoarse Relevant Family History (Specify if Yes): No Relevant Social History: Tobacco Use Present Medications: see Short Stay Collaborative assessment Medical History: Significant History (Kidney stones Hypothyroidism GERD (gastroesophageal reflux disease) Depression Anxiety disorder Asthma ADHD) History of Previous Operations: Relevant previous surgery/procedure and date(s) ( History of lithotripsy Hx of colonoscopy Hx of cholecystectomy Hx of endoscopy Hx of gastric bypass) Allergies: Allergies Allergy/AdvReac Type Severity Reaction Status Date / Time scallops Allergy Mild Unknown Verified 08/01/22 11:25 buspirone [From BUSPAR] Allergy Unknown UNKNOWN Verified 08/01/22 11:25 Review of Systems Sugical H&P ROS: Negative: Constitution, Cardiovascular, Respiratory, Neurological, Psychiatric, Hem-Onc, Allergic/Immunologic, Gastrointestinal, Genitourinary, Musculoskeletal, Integumentary, Endocrine and Eyes/Ears/Nose/Throat Exam Surgical H&P Exam: Normal: Heart, Normal: Lungs, Normal: Extremities, Normal: Abdomen, Normal: Skin and Normal: Neurological and Significant Findings: HEENT (dysphonia, poor dentition) Plan Diagnosis/Plan: Unchanged I have reviewed the history and physical and performed a pertinent physical examination on my patient. No changes have occurred unless specified. EGD for further assessment of sx, r/o ulcer, stricture, neoplasia Time Spent With Patient Time: Total time managing care of this patient today ____ minutes.
--- OUTSIDE RECORDS SUMMARY | 2023-09-25 09:51 | XMS_ITS | Continuity of Care Document ---
Author Organization [facility] Address [address] [place] [id number]- Care Team Providers Care Digital Research Analyst Name Role Phone Angelito CHAHAL, Abdulkadir Espinoza Primary Care Physician Encounter [facility] Date(s): 05/23/23 - 06/22/23 [facility] [address] [place] [id number] Allergies, Adverse Reactions, Alerts Substance Reaction Severity Status BuSpar electric feeling on body Act marco a Medications Abilify 5 mg oral tablet 5 mg, 1, tablet, By Mouth, Daily, Refills 0, Maintenance, 09/05/17 16:03:44 Start Date: 09/05/17 Status: Ordered Adderall = 30 mg, By Mouth, 2 times a day, 0 Refills, Maintenance, 09/05/17 16:03:04 Start Date: 09/05/17 Status: Ordered Clonazepam 2, mg, By Mouth, 2 times a day, Scheduled / PRN, 0, 0, 03/14/06 21:05:16, as needed, Print LESLY Number, [id number] Start Date: 03/14/06 Status: Ordered KlonoPIN 2 mg oral tablet 1 tablet = 2 mg, By Mouth, Daily at bedtime, 0 Refills, Maintenance, 09/05/17 16:04:12 Start Date: 09/05/17 Status: Ordered Levothyroxine 0.15, mg, By Mouth, Daily, 0, 0, 03/14/06 21:04:44, Print LESLY Number, [id number], Constant Indicator Start Date: 03/14/06 Status: Ordered multivitamin Multiple Vitamins oral tablet, chewable 1 tablet, Chew, Daily, # 30 tablet, 0 Refills, Maintenance, Chew Tablet Start Date: 11/25/09 Status: Ordered Prilosec 20 mg oral enteric coated capsule 1 capsule = 20 mg, By Mouth, Daily, # 30 capsule, 0 Refills, Maintenance, EC Capsule Start Date: 11/25/09 Status: Ordered simethicone 150 mg oral tablet, chewable See Instructions, 90, 7, 7, 07/05/06 11:21:30, 1 tab po tid, Print LESLY Number, ADS OPPTHS, ConstantIndicator Start Date: 07/05/06 Status: Ordered Tramadol = 50 mg, By Mouth, Every 8 hours, 0 Refills, Maintenance, 09/05/17 16:04:24 Start Date: 09/05/17 Status: Ordered Trazodone = 100 mg, By Mouth, Daily at bedtime, 0 Refills, Maintenance, 09/05/17 16:03:54 Start Date: 09/05/17 Status: Ordered Valtrex 500 mg oral tablet 500 mg, 1, tablet, By Mouth, Daily, Refills 0, Maintenance, 09/05/17 16:02:58 Start Date: 09/05/17 Status: Ordered Problem List Condition Confirmation Course Effective Dates Status H ealth Status Informant Abdominal pain Confirmed Active ADD (attention deficit disorder) Confirmed Active History of gastric bypass Confirmed Active Hypothyroidism Confirmed Active Dyspepsia Confirmed Active Social History Social History Type Response Smoking Status Former smoker; Other : quit in 2009; entered on: 10/09/17 Sex Patient Care team information Care Team Personnel Name: Vero Mota RN Position: [facility] SN RN Member Role: Primary Care Nurse Name: Abdulkadir Eaton MD Position: [facility] Outreach Member Role: PCP Address: Address: [address] [place] [address]- Care Team Related Persons Name: ROSALIO VASQUEZ Address: home [address] [place], [place] Name: PIYUSH VALDIVIA Address: home [address] [place], [place]
--- OUTSIDE RECORDS SUMMARY | 2023-09-25 09:51 | XMS_ITS | Continuity of Care Document ---
Author Organization [facility] Address [address] [facility], [facility] [address] [place] [address]- Care Team Providers Care Handle Lathe Operator Name Role Phone Abdulkadir Eaton MD Primary Care Physician [phone] Encounter 06/14/23 - 06/21/23 [facility] [address], [address] [place], [place] [address] Attending Physician: Abdulkadir Eaton MD Admitting Physician: Abdulkadir Eaton MD Referring Physician: Abdulkadir Eaton MD Allergies, Adverse Reactions, Alerts Substance Reaction Severity [...] 03/14/06 21:05:16, as needed, Print LESLY Number, [id number] Start Date: 03/14/06 Status: Ordered KlonoPIN 2 mg oral tablet 1 tablet = 2 mg, By Mouth, Daily at bedtime, 0 Refills, Maintenance, 09/05/17 16:04:12 Start Date: 09/05/17 Status: Ordered Levothyroxine 0.15, mg, By Mouth, Daily, 0, 0, 03/14/06 21:04:44, Print LESLY Number, [id number], Constant Indicator Start Date: 03/14/06 Status: Ordered [...] Active Hypothyroidism Confirmed Active Dyspepsia Confirmed Active Results Radiology Reports * Exam Date Time Procedure Performing Provider Status 06/14/23 4:[address] Chest LDCT Lung Program Carlo Lama [place]; Auth (Verified) Notes: (CT Chest LDCT Lung Program) Reason For Exam: LDCT LUNG CANCER SCREENING PROGRAM, CURRENT SMOKER, 26 PACK YEAR HX;Other: RESULT: CT Chest LDCT Lung Program CT Chest LDCT Lung Program Reason: Other:; LDCT LUNG CANCER SCREENING PROGRAM, CURRENT SMOKER, 26 PACK YEAR HX; Clinical Question(s): Other:; Special Instructions: BOOK AT [address] [place] [address] BOOK AFTER [address] IN THE LAST 12 MONTHS NO LUNG CA OR SIGNS AND SYMPTOMS OF LUNG CA Visit type: Baseline TECHNIQUE: Low-dose helical CT of the chest without IV contrast (Adult Lung Cancer Screening) protocol was performed. Coronal reformats were obtained. Weight-based protocol using automatic tube modulation was used to optimize exposure parameters. CTDIvol Body: .90 mGy, DLP Body: 33 mGy*cm. COMPARISON: None FINDINGS: LUNG NODULES (measured on thin axial series 3): RIGHT lung: No noncalcified pulmonary nodules. There are calcified pulmonary granulomas, up to 2 mm, in the right upper lung in series 3 image 63 and adjacent to the airway and partially within the wall in the right lower lung series 3 image 158. LEFT lung: No noncalcified pulmonary nodules. There is a calcified granuloma, up to 2 mm, in the left upper lobe at series 3 image 93 and in the left lower lobe series 3 image 139. OTHER FINDINGS: Literacy Specialist view findings, lines and tubes: None. Trachea and airways: Patent proximal tracheobronchial tree with small volume of secretions seen at the left trachea, linear on reconstructions, series 5 image 19. Lungs and pleura: Minimal upper lung emphysema. No effusion or pneumothorax. Mediastinum and kaveh: No mass or hematoma. No mediastinal or hilar lymphadenopathy. Patulous esophagus. Partially imaged thyroid is unremarkable. Heart: Heart is normal in size. No pericardial effusion. Aorta: No aortic aneurysm. Pulmonary arteries: Normal caliber. Chest wall soft tissues: No acute abnormality. No axillary adenopathy. Diaphragm: Intact. Upper abdomen: Postsurgical changes of the stomach with suture line, from prior gastric bypass. Previous cholecystectomy. There are bilateral nonobstructing renal calculi, up to 4 mm in the upper pole of the left kidney as well as parenchymal calcification which is seen in the right kidney at series 2 image 96 with likely tiny nonobstructing calculi in the upper pole collecting system of the right kidney image 95. Bones: No acute abnormality. IMPRESSION: 1. LungRad Category: 1 Negative. Definitely benign nodule(s) with specific calcifications: complete, central, popcorn, concentric, rings and fat containing nodules. Continue annual screening with LDCT in 12 months 2. No significant additional findings requiring further evaluation. Lung-RAD Category Modifier: None. Categorization based on Lung-RADS 2022 criteria. [email or web address] WSN: [id number] Ordering Physician: Abdulkadir Eaton MD Dictated By: Monalisa Mcdonald MD Dictated Date/Time: 06/14/23 5:05 pm Reviewed By: Monalisa Mcdonald MD Signed By: Monalisa Mcdonald MD Signed Date/Time: 06/14/23 5:05 pm Transcribed By: MEKA Transcribed Date/Time: 06/14/23 4:47 pm Social History Social History Type Response Smoking Status Former smoker; Other : quit in 2009; entered on: 10/09/17 Sex Patient Care team information Care Team Personnel Name: Vero Mota RN Position: [facility] SN RN Member Role: Primary Care Nurse Name: Abdulkadir Eaton MD Position: [facility] Outreach Member Role: PCP Address: Address: [address] [place] [address]- Care Team Related Persons Name: ROSALIO VASQUEZ Address: [address] [place] [address] Name: PIYUSH VALDIVIA Address: home [address] [place] [address]
--- OUTSIDE RECORDS SUMMARY | 2023-09-25 09:51 | XMS_ITS | Continuity of Care Document ---
Author Organization [facility] Address [address] [facility] [address] [place] [address]- Care Team Providers Care Medical Staff Director Name Role Phone Abdulkadir Eaton MD Primary Care Physician Encounter 05/30/23 - 07/07/23 [facility] [address], [address] [place] [address]- Attending Physician: Abdulkadir Eaton MD Admitting Physician: [...] 03/14/06 21:05:16, as needed, Print LESLY Number, [id number] Start Date: 03/14/06 Status: Ordered KlonoPIN 2 mg oral tablet 1 tablet = 2 mg, By Mouth, Daily at bedtime, 0 Refills, Maintenance, 09/05/17 16:04:12 Start Date: 09/05/17 Status: Ordered Levothyroxine 0.15, mg, By Mouth, Daily, 0, 0, 03/14/06 21:04:44, Print LESLY Number, [id number], Constant Indicator Start Date: 03/14/06 Status: Ordered [...] Team Personnel Name: Vero Mota RN Position: [facility] SN RN Member Role: Primary Care Nurse Name: Abdulkadir Eaton MD Position: [facility] Outreach Member Role: PCP Address: Address: [address] [place] [address]- Care Team Related Persons Name: ROSALIO VASQUEZ Address: home [address] [place], [place] Name: PIYUSH VALDIVIA Address: home [address] [place], [place]
--- OUTSIDE RECORDS SUMMARY | 2023-09-25 09:51 | XMS_ITS | Continuity of Care Document ---
Author Organization [facility] Address [address] [facility] [address] [place] [address]- Care Team Providers Care Rigging Loft Mechanic Name Role Phone Abdulkadir Eaton MD Primary Care Physician Encounter 06/09/23 - 07/13/23 [facility] [address], [address] [place], [place] [address] Attending Physician: Abdulkadir Eaton MD Admitting Physician: [...] 03/14/06 21:05:16, as needed, Print LESLY Number, [id number] Start Date: 03/14/06 Status: Ordered KlonoPIN 2 mg oral tablet 1 tablet = 2 mg, By Mouth, Daily at bedtime, 0 Refills, Maintenance, 09/05/17 16:04:12 Start Date: 09/05/17 Status: Ordered Levothyroxine 0.15, mg, By Mouth, Daily, 0, 0, 03/14/06 21:04:44, Print LESLY Number, [id number], Constant Indicator Start Date: 03/14/06 Status: Ordered [...] Team Personnel Name: Vero Mota RN Position: [facility] SN RN Member Role: Primary Care Nurse Name: Abdulkadir Eaton MD Position: [facility] Outreach Member Role: PCP Address: Address: [address] [place] [id number]- Care Team Related Persons Name: ROSALIO VASQUEZ Address: home [address] [place], [place] Name: PIYUSH VALDIVIA Address: home [address] [place], [place]
[2023-09-25 10:08] VITALS: BMI 17.9
[2023-09-25 10:32] VITALS: BP 132/87; PULSE 86; RESP 16; TEMP 37.3; O2SAT 98
[2023-09-25] MEDS: Lactated Ringers 1,000 ML 100 ML IVCONT (10:45)
--- NOTE | 2023-09-25 10:56 | W.PM.OPN ---
Operative Note Operative Note Date of Service: 09/25/23 Narrative: Procedure Description: EGD Indication: dysphonia, dysphagia, Anesthesia: MAC FLEXIBLE TRANSORAL UPPER GASTROINTESTINAL ENDOSCOPY UPPER ENDOSCOPY Consent: Indications for the procedure and potential complications of bleeding, perforation, reaction to medications and missed diagnosis were discussed with the patient and informed consent was obtained. Instrument: Olympus GIF H 190 J mid size upper endoscope Monitoring: Vital signs and clinical assessment, continuous EKG monitoring, Pulse oximetry, Carbon Dioxide monitoring and blood pressure monitoring were done throughout the procedure. Procedure: The patient was placed in the left lateral decubitis position and pre-procedure medications were administered and a bite block was placed. The endoscope was inserted into the mouth and advanced under direct vision to the jejunum. A careful inspection was made as the upper endoscope was withdrawn including a retroflexed examination of the proximal stomach; Findings and interventions are described below. Hx of gastric bypass Findings: Larynx:normal, VC looked normal, and seemed to move well Esophagus: GE junction at 40 cm, diaphragm hiatus at 40 cm, balloon dilation done at LES to 20 mm, no tear seen then UES to 19 mm, no tear seen, bx taken from GEJ and proximal esophagus, mucosa looked normal, possibly some tertiary contractions Stomach pouch: Pouch mucosa normal. Grade 2 flap valve on retroflexed examination of the cardia. Mild erythema at the gastrojejunal anastomosis, with bogginess, bx taken jejunum: normal Intervention: balloon dilation, cold forceps bx Impression/Findings: mild inflammation around gastrojejunal junction PLAN: cont with carafate and PPI smoking cessation if sx persist then further w/u, MBS or ba swallow with pill, possible manometry, vs WALSH
[2023-09-25 11:30] VITALS: BP 127/74; PULSE 81; RESP 18; TEMP 37; O2SAT 99
[2023-09-25 11:45] VITALS: BP 132/89; PULSE 88; RESP 16; TEMP 37; O2SAT 99
== END 2023-09-25 12:19 | disposition home or self-care (01) ==
PROVIDERS: PCP Internal Medicine; Visit Provider Internal Medicine Gastroenterology
PROC: 0DJ08ZZ Inspection of Upper Intestinal Tract, Via Natural or Artificial Opening Endoscopic (ICD-10-PCS; CPT 43235; principal; 2023-09-25 12:40)
DX: K29.50 Unspecified chronic gastritis without bleeding (principal); R49.0 Dysphonia; R13.10 Dysphagia, unspecified; K44.9 Diaphragmatic hernia without obstruction or gangrene; Z98.84 Bariatric surgery status; K21.9 Gastro-esophageal reflux disease without esophagitis; E03.9 Hypothyroidism, unspecified; J45.909 Unspecified asthma, uncomplicated; F32.A Depression, unspecified; F41.9 Anxiety disorder, unspecified; Z87.442 Personal history of urinary calculi; Z90.49 Acquired absence of other specified parts of digestive tract; Z79.899 Other long term (current) drug therapy; Z88.8 Allergy status to other drugs, medicaments and biological substances; F17.210 Nicotine dependence, cigarettes, uncomplicated
CPT/HCPCS: 43249; 43239; 88305; 88313; 88342; C1726; J2250; J2704

== ENCOUNTER → 2023-09-25 09:48 | Outpatient (BNV) | payer MEDICAID, SELFPAY | PROVIDERS: PCP Internal Medicine; Visit Provider Internal Medicine Gastroenterology | DX: R13.10 Dysphagia, unspecified (principal); R49.0 Dysphonia; Z98.84 Bariatric surgery status | CPT/HCPCS: 43239; 43249 ==

== ENCOUNTER 2023-11-03 12:04 | Outpatient (AMB) | payer MEDICAID, SELFPAY ==
--- NOTE | 2023-11-03 12:05 | MHC.OFFVIS ---
Intake Visit Reasons: s/p egd Intake Note: Naomy presents as a telehealth to go over results to EGD/ CC: just wants results to her procedure. Allergies scallops Allergy (Mild, Verified 11/03/23 12:05) Hives buspirone [From BUSPAR] Adverse Reaction (Severe, Verified 11/03/23 12:05) UNKNOWN selective serotonin reuptake inhibi Allergy (Severe, Uncoded 11/03/23 12:05) Unknown HPI HPI s/p egd: Details: 53 yr old f being called for f/u RECAP: she was taking linaclotide, miralax and she still felt suboptimal emptying, still on tramadol appetite is variable nausea helped by prochlorperazine sups not taking levsin scheduled as suggested. She had called as she was unable to go to the bathroom and has complaints of abdominal pain and vomiting after eating. A KUB was ordered for her an dshe was supposed to use enemas after KUB was done. KUB showed she had moderate amount of stool in colon she reports she is not pooping and hasn't gone in over 4 days she states she can't eat or drink She stated she feels that she has a urinary tract infection and she is having trouble urinating Complaints of low pelvic pain, has CVA tenderness She mentions that she is continuing to lose weight, and is interested in protein shakes. She is a bit malnutrition and will try to order ensures for her. These may require a prior authorization repeat EGD showed ulcer markedly improved, small bowel bx normal small bowel follow thru: slow transit thought to be due to constipation, otherwise normal At f/u 09/2019- she was feeling well, sx well controlled with prilsoec, compazine she was given treatment for uti she tried motegrity which didn;t help At f/u 11/06--recurrence of sx, with epigastric pain and went back to smoking, with nausea and vomiting EGD: 12/07--There was a retained staple on gastric side, removed with forceps . mild erythema at the gastrojejunal anastomosis, slightly strictured, so dilated with 14 mm balloon. 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 otherwise nml INTERIM: she feels better after having her teeth removed she still has emotional issues still has issues with swallowing but awaiting partials has to find a new dentist--things chewing is the problem not the transit weight is going up with boost EXAM: video---relaxed Assessment & Plan 1/ nausea, vomiting somewhat imprvoed with dental extractions, PLAN: 1/ currently stable, if has isuses with swallowing after her partials then barium with pill 2/ advised to cont with carafate and PPI due to chronic injury at anastomosis [facility] Medical History Kidney stones Hypothyroidism GERD (gastroesophageal reflux disease) Depression Anxiety disorder Asthma ADHD Surgical History History of lithotripsy Hx of colonoscopy Hx of cholecystectomy Hx of endoscopy Hx of gastric bypass Family History Unknown No problems noted. Mother No problems noted. Social History Alcohol intake: current Alcohol intake frequency: a few times a week Alcohol type: hard liquor Patient Tobacco Use Status: Current everyday Tobacco user Tobacco use type: Cigarette Cigarettes Per Day: 12 Second Hand Smoke Exposure: No Substance Use Type: Marijuana Telehealth Telehealth Telehealth Platform: [employer] Location of provider rendering services: practice address Location of patient: address on file Patient Identification confirmed using: Name, : Yes Telehealth method: video Patient verbally consented to treatment: Yes Patient verbally consented to billing insurance company: Yes Patient informed of any privacy concerns related to visit: Yes Minutes spent on Phone/Video with Pt.: 8 Assessment & Plan Assessment & Plan (1) Acute anastomotic ulcer of gastrojejunal region: Code(s): K28.3 - Acute gastrojejunal ulcer without hemorrhage or perforation Category: Medical Plan: see above Medications: Refilled metoclopramide HCl (Reglan) use bonly as needed for nausea/vomiting 10 mg PO Q6H PRN 15 tabs 0RF nausea and vomiting Coding Level of Care Code Tele Est Pt Level 3 (54542) Diagnoses Acute anastomotic ulcer of gastrojejunal region K28.3
== END 2023-11-03 13:42 | disposition home or self-care (01) ==
LOC: HO.HGI 12:04
PROVIDERS: PCP Internal Medicine; Visit Provider Internal Medicine Gastroenterology
DX: K28.3 Acute gastrojejunal ulcer without hemorrhage or perforation (principal)
CPT/HCPCS: 99213

== ENCOUNTER → 2023-11-03 12:04 | Outpatient (BNVA) | payer MEDICAID, SELFPAY | PROVIDERS: PCP Internal Medicine; Visit Provider Internal Medicine Gastroenterology ==

== ENCOUNTER 2024-10-12 19:27 | Day surgery (SDC) | payer MEDICAID, SELFPAY ==
--- NOTE | ~2024-10-12 | XR_ITS ---
CLINICAL HISTORY: chest pain after vomiting 2 view chest x-ray Comparison: None Findings: Normal size heart. Mild bilateral hyperinflation. No consolidation, pleural effusion or pneumothorax. No acute fracture. Mild levoscoliosis. IMPRESSION: 1. No acute findings. This document has been electronically signed by: Jazlyn Goncalves MD on 10/12/2024 23:11:38
--- NOTE | ~2024-10-12 | XR_ITS ---
CLINICAL HISTORY: constipation 1 view abdomen Comparison: None Findings: Nonobstructive bowel gas pattern. Moderate stool in ascending colon. IUD in the pelvis centrally. Bilateral pelvic calcifications likely. Right upper quadrant surgical clips. No acute fractures. 9 lung bases are clear IMPRESSION: Nonobstructive bowel gas pattern. Moderate stool in ascending colon. This document has been electronically signed by: Jazlyn Goncalves MD on 10/12/2024 23:14:14
[2024-10-12 19:28] VITALS: BP 132/80; PULSE 90; RESP 16; TEMP 36.9; O2SAT 98; BMI 19.0
--- NOTE | 2024-10-12 19:30 | ED_ITS ---
HPI - General Adult General Chief complaint: Nausea/Vomiting/Diarrhea Stated complaint: abd pain, vomiting Time Seen by Provider: 10/12/24 21:53 History of Present Illness ED Provider: Fabiola BLACKMAN narrative: The patient is a 54-year-old woman with a history of gastric bypass surgery 20 years ago. She has also had problems with esophageal narrowing and she says that she has had at least 2 esophageal dilations. The patient says that she has a lot of chronic problems with eating and has trouble keeping up her weight. The patient says that over the last 2-1/2 days she has had a lot of nausea and vomiting. She says that she has vomited at least 13 times in the last 2 days. She has chest pain from vomiting. She feels nauseated. She feels as though food is not able to pass. She is worried that she is having a significant esophageal narrowing again. Related Data Home Medications ?Medication ?Instructions ?Recorded ?Confirmed albuterol sulfate 90 mcg/actuation 2 puff PO DAILY 12/08/20 09/21/23 aerosol inhaler (ProAir HFA) clonazepam 2 mg tablet 2 mg PO TID 09/27/21 09/21/23 dextroamphetamine-amphetamine 30 1 tab PO BID 09/27/21 09/25/23 mg tablet levothyroxine 175 mcg tablet 175 mcg PO DAILY 09/27/21 09/25/23 nitrofurantoin 1 cap PO DAILY 09/27/21 monohydrate/macrocrystals 100 mg capsule tramadol 50 mg tablet 100 mg PO QID 09/27/21 09/21/23 valacyclovir 500 mg tablet 500 mg PO DAILY 09/27/21 09/21/23 duloxetine 30 mg capsule,delayed 30 mg PO DAILY 03/31/22 09/21/23 release naloxone 4 mg/actuation nasal spray 1 spray intranasal DAILY 08/01/22 Previous Rx's ?Medication ?Instructions ?Recorded ondansetron 8 mg disintegrating 8 mg PO Q8H #60 tabs 01/11/21 tablet omeprazole 40 mg capsule,delayed 40 mg PO BID #90 caps 03/31/22 release prochlorperazine 25 mg rectal 25 mg FL BID PRN nausea and 03/31/22 suppository vomiting #12 ea food supplemt, lactose-reduced 1 ea PO BID malnutrition #14,220 mL 08/30/22 0.06 gram-1.5 kcal/mL oral liquid (Boost Plus) bisacodyl 10 mg rectal suppository 10 mg FL DAILY PRN constipation 09/02/22 (Dulcolax (bisacodyl)) #12 ea polyethylene glycol 3350 17 17 g PO DAILY #119 grams 09/02/22 gram/dose oral powder (Miralax) food supplemt, lactose-reduced 1 ea PO BID 30 days #60 packets 09/14/23 (Ensure High Protein oral liquid) sucralfate 100 mg/mL oral 10 ml PO BID #1,000 mL 09/14/23 suspension (Carafate) metoclopramide HCl 10 mg tablet 10 mg PO Q6H PRN nausea and 11/03/23 (Reglan) vomiting #15 tabs Allergies Allergy/AdvReac Type Severity Reaction Status Date / Time scallops Allergy Mild Hives Verified 10/12/24 19:32 buspirone [From BUSPAR] AdvReac Severe UNKNOWN Verified 10/12/24 19:32 selective serotonin reuptake Allergy Severe Unknown Uncoded 10/12/24 19:32 inhibi Review of Systems 2 Review of Systems: Yes all other systems are reviewed and are negative PMFSH Past Medical History Medical History Kidney stones Hypothyroidism GERD (gastroesophageal reflux disease) Depression Anxiety disorder Asthma ADHD Surgical History History of lithotripsy Hx of colonoscopy Hx of cholecystectomy Hx of endoscopy Hx of gastric bypass Family History Family History Unknown No problems noted. Mother No problems noted. Social History Social History Alcohol intake: current Alcohol intake frequency: holidays/special occasions only Alcohol type: hard liquor Patient Tobacco Use Status: Current everyday Tobacco user Tobacco use type: Cigarette Cigarettes Per Day: 12 Second Hand Smoke Exposure: No Substance Use Type: Marijuana Physical Exam ED Vital Signs: Vital Signs - 24 hr 10/12/24 19:28 10/12/24 21:53 10/13/24 00:50 Temperature 98.4 F 98.2 F 98.0 F Pulse Rate 90 78 91 Respiratory Rate 16 18 16 Blood Pressure 132/80 128/88 117/76 Pulse Oximetry 98 97 95 Oxygen Delivery Method Room Air Room Air Room Air 10/13/24 06:18 10/13/24 11:10 10/13/24 11:55 Temperature 98.0 F 98.2 F 98.6 F Pulse Rate 79 93 86 Respiratory Rate 18 16 16 Blood Pressure 124/88 110/72 117/76 Pulse Oximetry 96 97 99 Oxygen Delivery Method Room Air Room Air Room Air 10/13/24 12:10 10/13/24 12:57 Temperature 98.7 F 98.7 F Pulse Rate 80 80 Respiratory Rate 16 16 Blood Pressure 120/76 120/76 Pulse Oximetry 99 99 Oxygen Delivery Method Room Air BMI result Body Mass Index 19.0 Const Other: The patient is a thin 54-year-old female who looks somewhat older than her age. She is awake and alert. She has an anxious demeanor. She does not seem in obvious acute distress. Orientation/consciousness: patient oriented x3 HENMT Other: Face is symmetrical. Mucous membranes moist. Eyes General: appearance normal, both eyes and all related structures Neck Neck: Yes normal visual inspection and Yes full ROM Resp Effort & Inspection: normal respiratory effort Auscultation: clear to auscultation bilaterally Cardio Rate: regular rate Rhythm: regular rhythm Heart sounds: S1 normal heart sound present and S2 normal heart sound present GI Other: The abdomen is flat, soft, and not obviously tender. No distention. Skin Other: Skin is pale and dry Neuro General: patient oriented x3, tone normal, moves all extremities, no focal motor deficits and CN's II-XI intact bilaterally Extrem General: Yes no pedal edema and Yes no calf tenderness Course Course Course Narrative: RME, this is a rapid medical exam performed by Edgardo Fisehr please refer to primary provider for complete H&P- 54 year old female presents for evaluation of abdominal pain and vomiting for the last few days. She reports that she follow with Dr Saleh for GI. She also believes a raisin got stuck in her throat Medications Administered Discontinued Medications Generic Name Dose Route Start Last Admin Trade Name Freq PRN Reason Stop Dose Admin Diazepam 5 mg 10/12/24 23:47 10/12/24 23:57 Diazepam 10 Mg/2 Ml Cartridge IVPUSH 10/12/24 23:48 5 mg STAT STA Administration Diazepam 5 mg 10/13/24 02:05 10/13/24 02:30 Diazepam 10 Mg/2 Ml Cartridge IVPUSH 10/13/24 02:06 5 mg STAT STA Administration Diazepam 5 mg 10/13/24 06:23 10/13/24 06:33 Diazepam 10 Mg/2 Ml Cartridge IVPUSH 10/13/24 06:24 5 mg STAT STA Administration Diphenhydramine HCl 25 mg 10/12/24 22:02 10/12/24 22:19 Diphenhydramine Hcl 50 Mg/Ml Vial IVPUSH 10/12/24 22:03 25 mg ONCE ONE Administration Famotidine 20 mg 10/12/24 22:02 10/12/24 22:19 Famotidine/Pf 20 Mg/2 Ml Vial IVPUSH 10/12/24 22:03 20 mg ONCE ONE Administration Lactated Ringer's 1,000 mls @ 999 mls/hr 10/13/24 09:30 10/13/24 09:46 Lr IV 10/13/24 10:30 999 mls/hr .Q1H1M AINSLEY Administration Metoclopramide HCl 10 mg 10/12/24 22:02 10/12/24 22:18 Metoclopramide Hcl 10 Mg/2 Ml Vial IVPUSH 10/12/24 22:03 10 mg ONCE ONE Administration Metoclopramide HCl 10 mg 10/13/24 09:19 10/13/24 09:45 Metoclopramide Hcl 10 Mg/2 Ml Vial IVPUSH 10/13/24 09:20 10 mg ONCE ONE Administration Morphine Sulfate 4 mg 10/13/24 09:19 10/13/24 09:41 Morphine Sulfate 4 Mg/Ml Cartridge IVPUSH 10/13/24 09:20 4 mg ONCE ONE Administration Protocol Ondansetron HCl 4 mg 10/12/24 21:50 10/12/24 21:54 Ondansetron Odt 4 Mg Tab.Rapdis TRANSLINGU 10/12/24 21:51 4 mg ONCE ONE Administration Medical Decision Making Medical Decision Making MDM Narrative: The patient is a 54-year-old female with a history of gastric bypass surgery over 20 years ago and also a history of esophageal dilations at upper endoscopy. She presents with 2 days of feeling that food is not passing into her stomach. She says she has been vomiting multiple times and does not feel that even her secretions are going down. The patient's labs are unremarkable. Her abdominal exam seems benign. Chest x- ray is negative. My overall impression was that the patient might be having something like a food impaction in her esophagus but it was not entirely clear that this was the case. She was treated symptomatically with metoclopramide. She was also given glucagon. She also takes regular clonazepam and she was given diazepam. Although her symptoms seemed to improve with the medications she received she did not feel that she was better able to tolerate any fluids or her secretions and continued to have regurgitation and vomiting. I have been in contact with Dr. Britt of Gastroenterology who will plan to take the patient to the endoscopy suite this morning. Lab Data 10/12/24 19:54 10/12/24 19:54 Labs: Lab Results 10/12/24 Range/Units 19:54 WBC 8.6 (4.8-10.8) X10*3/uL RBC 5.17 (4.20-5.50) X10*6/uL Hgb 11.9 L (12.0-16.0) g/dl Hct 39.1 (37.0-47.0) % MCV 75.6 L (80.0-98.0) fL MCH 23.0 L (27.0-33.0) pg MCHC 30.4 L (31.0-35.0) g/dl RDW 18.8 H (11.0-16.0) % Plt Count 277 (160-400) X10*3/uL MPV 8.0 L (9.4-12.3) fL Immature Gran % (Auto) 0.2 (0.0-0.4) % Neut % (Auto) 76.6 H (45-73) % Lymph % (Auto) 15.4 L (20-40) % Mcintosh % (Auto) 6.0 (2-11) % Eos % (Auto) 1.1 (0-4) % Baso % (Auto) 0.7 (0-2) % Lymph # (Auto) 1.3 (1.2-4.9) X10*3/uL Mcintosh # (Auto) 0.5 (0.1-1.2) X10*3/uL Eos # (Auto) 0.1 (0.0-0.4) X10*3/uL Baso # (Auto) 0.1 (0.0-0.2) X10*3/uL Abs Immat Gran (auto) 0.02 (0.00-0.03) X10*3/uL Absolute Neuts (auto) 6.6 (2.0-8.3) x10*3/uL Absolute Nucleated RBC 0.000 (0.0-0.012) X10*3/uL Nucleated RBC % (auto) 0.0 (0.0-0.2) /100WBC Sodium 140 (135-145) mmol/L Potassium 3.2 L (3.3-5.1) mmol/L Chloride 107 (96-108) mmol/L Carbon Dioxide 27 (22-29) mmol/L Anion Gap 9 L (12-20) BUN 15 (9-16) mg/dL Creatinine 0.78 (0.5-1.4) mg/dL Estim Creat Clear Calc 71.2 Estimated GFR > 60 Random Glucose 112 (60-115) mg/dL Calcium 9.9 D (8.4-10.2) mg/dL Total Bilirubin 0.8 (0.0-1.0) mg/dL AST 23 (5-31) U/L ALT 16 (0-31) U/L Alkaline Phosphatase 70 (39-117) U/L Total Protein 7.6 (6.5-8.0) g/dL Albumin 4.5 (3.5-5.0) g/dL Lipase 18 (8-78) U/L Discharge Plan Discharge Clinical Impression: Diagnosis unknown Patient Disposition: Home, Self-Care Interventions: ED Discharge Assessment Last Done: 10/13/24 12:57 Discharge Date/Time: 10/13/24 12:58
[2024-10-12 19:58] LABS: MANUAL DIFF FLAG NO
[2024-10-12 20:06] LABS: Basophils Absolute Auto 0.1 X10*3/uL (0.0-0.2); Basophils Percent Auto 0.7 % (0-2); Eosinophils Absolute Auto 0.1 X10*3/uL (0.0-0.4); Eosinophils Percent Auto 1.1 % (0-4); Hematocrit 39.1 % (37.0-47.0); Hemoglobin 11.9 g/dl (12.0-16.0); Imm Gran Abs Auto 0.02 X10*3/uL (0.00-0.03); Imm Gran Pct Auto 0.2 % (0.0-0.4); Lymphocytes Absolute Auto 1.3 X10*3/uL (1.2-4.9); Lymphocytes Percent Auto 15.4 % (20-40); Mean Corpuscular HGB Conc 30.4 g/dl (31.0-35.0); Mean Corpuscular Volume 75.6 fL (80.0-98.0); Monocytes Absolute Auto 0.5 X10*3/uL (0.1-1.2); Neutrophils Absolute Auto 6.6 x10*3/uL (2.0-8.3); Neutrophils Percent Auto 76.6 % (45-73); Platelet Count 277 X10*3/uL (160-400); Red Blood Count 5.17 X10*6/uL (4.20-5.50); Red Cell Distribution Width 18.8 % (11.0-16.0); White Blood Count 8.6 X10*3/uL (4.8-10.8)
[2024-10-12 20:14] LABS: Alanine Aminotransferase 16 U/L (0-31); Albumin Level 4.5 g/dL (3.5-5.0); Alkaline Phosphatase 70 U/L (39-117); Anion Gap 9 (12-20); Aspartate Amino Transferase 23 U/L (5-31); Bilirubin Total 0.8 mg/dL (0.0-1.0); Blood Urea Nitrogen 15 mg/dL (9-16); Calcium 9.9 mg/dL (8.4-10.2); Carbon Dioxide 27 mmol/L (22-29); Chloride 107 mmol/L (96-108); Creatinine Clr Calc Pharmacy 71.2; Estimated Glomerular Filt Rate > 60; Glucose Random 112 mg/dL (60-115); Lipase 18 U/L (8-78); Potassium 3.2 mmol/L (3.3-5.1); Sodium 140 mmol/L (135-145); Total Protein 7.6 g/dL (6.5-8.0)
[2024-10-12 21:53] VITALS: BP 128/88; PULSE 78; RESP 18; TEMP 36.8; O2SAT 97
[2024-10-12] MEDS: Ondansetron ODT 4 MG TAB.RAPDIS TRANSLINGU (21:54)
--- NOTE | 2024-10-12 21:55 | PC.NURSE ---
pt actively vomiting, pt medicated per MAR
[2024-10-12] MEDS: Metoclopramide HCl 10 MG/2 ML VIAL IVPUSH (22:18)
[2024-10-12] MEDS: Famotidine/PF 20 MG/2 ML VIAL IVPUSH (22:19)
[2024-10-12] MEDS: diphenhydrAMINE HCL 50 MG/ML VIAL 25 MG IVPUSH (22:19)
--- NOTE | 2024-10-12 22:28 | PC.NURSE ---
pt medicated per AUG, 20g IV placed to R forearm. pt requested to sit up in bed, pt vomited upon sitting up. assist with washing and changing gown.
--- NOTE | 2024-10-12 23:12 | PC.NURSE ---
pt resting comfortably at this time
[2024-10-12] MEDS: diazePAM 10 MG/2 ML CARTRIDGE 5 MG IVPUSH (23:57)
[2024-10-13 00:50] VITALS: BP 117/76; PULSE 91; RESP 16; TEMP 36.7; O2SAT 95
--- NOTE | 2024-10-13 01:26 | PC.NURSE ---
pt passed swallow eval, however less than 5 minutes later pt vomited all the water that was given during assessment. aware.
[2024-10-13] MEDS: diazePAM 10 MG/2 ML CARTRIDGE 5 MG IVPUSH ×2 (02:30→06:33)
[2024-10-13 06:18] VITALS: BP 124/88; PULSE 79; RESP 18; TEMP 36.7; O2SAT 96
--- NOTE | 2024-10-13 06:28 | PC.NURSE ---
pt frequently spitting into emesis bag, reports chest pain. states i did just have a few sips or ice water and i know i should not have. aware. pt mediated per MAR
--- NOTE | 2024-10-13 09:20 | P.CNGI_ITS ---
History of Present Illness Data of Consult Service Date: 10/13/24 Requesting physician: Guero Hicks Primary Care Provider: Abdulkadir Eaton MD HPI Reason for consult: Food obstruction 54-year-old female with past medical history of Elizabet-en-Y gastric bypass, hypothyroidism, GERD, kidney stones, who presented to the hospital for dysphagia. Seen at bedside in the presence of her partner. Patient reports insidious onset of symptoms almost 6 weeks ago, initially would only have occasional/intermittent sensation of food getting stuck. This gradually worsened to intolerance to solids. For the last 1 week, she has only been taking Ensure shakes. However, since Monday she has also unable to take anything liquid and regurgitates it promptly. When she felt she was not able to keep herself hydrated, she presented to the emergency room. Noted to spit up frequently by the ER provider and emergency room nursing suspicious for acute food obstruction and therefore GI was consulted. Vitals have remained normal. Labs with microcytic anemia and mild hypokalemia. Renal function normal. She follows with Dr. Saleh as outpatient. Last seen in October 2023. Appears dysphagia is a more chronic problem then just 6 weeks ago. Recommendation was made for possible barium swallow in the future, but patient has not followed up in a year. Last EGD 2023: No obvious narrowing noted in the esophagus or GJ anastomosis. Empiric dilation was performed at LES and UES. Path: No H pylori. No EoE. Review of Systems 2 Review of Systems: Yes all other systems are reviewed and are negative PMFSH Past Medical History Medical History Kidney stones Hypothyroidism GERD (gastroesophageal reflux disease) Depression Anxiety disorder Asthma ADHD Family History Family History Unknown No problems noted. Mother No problems noted. Surgical History Surgical History History of lithotripsy Hx of colonoscopy Hx of cholecystectomy Hx of endoscopy Hx of gastric bypass Social History Social History Alcohol intake: current Alcohol intake frequency: holidays/special occasions only Alcohol type: hard liquor Patient Tobacco Use Status: Current everyday Tobacco user Tobacco use type: Cigarette Cigarettes Per Day: 12 Smoked in Last 30 Days: Yes Second Hand Smoke Exposure: No Use of substances other than those prescribed or required for medical reasons: Yes Substance Use Type: Marijuana Advance Directives: No Advance Directives Information Provided: No Do you have a plan to hurt others: No Plan Patient : No Meds Allergies Allergy/AdvReac Type Severity Reaction Status Date / Time scallops Allergy Mild Hives Verified 10/12/24 19:32 buspirone [From BUSPAR] AdvReac Severe UNKNOWN Verified 10/12/24 19:32 selective serotonin reuptake Allergy Severe Unknown Uncoded 10/12/24 19:32 inhibi Active Medications: Current Medications Lactated Ringer's (Lr) 1,000 mls @ 999 mls/hr IV .Q1H1M AINSLEY Stop: 10/13/24 10:30 Metoclopramide HCl (Metoclopramide Hcl 10 Mg/2 Ml Vial) 10 mg IVPUSH ONCE ONE Stop: 10/13/24 09:20 Morphine Sulfate (Morphine Sulfate 4 Mg/Ml Cartridge) 4 mg IVPUSH ONCE ONE; Protocol Stop: 10/13/24 09:20 Home Medications ?Medication ?Instructions ?Recorded ?Confirmed ?Last Taken ?Type albuterol sulfate 90 mcg/actuation 2 puff PO DAILY 12/08/20 09/21/23 Unknown History aerosol inhaler (ProAir HFA) clonazepam 2 mg tablet 2 mg PO TID 09/27/21 09/21/23 Unknown History dextroamphetamine-amphetamine 30 1 tab PO BID 09/27/21 09/25/23 09/25/23 History mg tablet levothyroxine 175 mcg tablet 175 mcg PO DAILY 09/27/21 09/25/23 09/25/23 History nitrofurantoin 1 cap PO DAILY 09/27/21 Unknown History monohydrate/macrocrystals 100 mg capsule tramadol 50 mg tablet 100 mg PO QID 09/27/21 09/21/23 Unknown History valacyclovir 500 mg tablet 500 mg PO DAILY 09/27/21 09/21/23 Unknown History duloxetine 30 mg capsule,delayed 30 mg PO DAILY 03/31/22 09/21/23 Unknown History release naloxone 4 mg/actuation nasal spray 1 spray intranasal DAILY 08/01/22 Unknown History Physical Exam 2 Vital Signs: Vital Signs: Last Vital Signs Temp 98.0 F 10/13/24 06:18 Pulse 79 10/13/24 06:18 Resp 18 10/13/24 06:18 BP 124/88 10/13/24 06:18 Pulse Ox 96 10/13/24 06:18 O2 Del Method Room Air 10/13/24 06:18 BMI result Body Mass Index 19.0 No apparent distress Nonicteric Abdomen soft, nondistended Alert and oriented x3, normal gait Results Labs 10/12/24 19:54 10/12/24 19:54 Labs: Short CBC 10/12/24 Range/Units 19:54 WBC 8.6 (4.8-10.8) X10*3/uL Hgb 11.9 L (12.0-16.0) g/dl Hct 39.1 (37.0-47.0) % Plt Count 277 (160-400) X10*3/uL BMP 10/12/24 19:54 Sodium 140 Potassium 3.2 L Chloride 107 Carbon Dioxide 27 BUN 15 Creatinine 0.78 Calcium 9.9 D Liver Function 10/12/24 Range/Units 19:54 Total Bilirubin 0.8 (0.0-1.0) mg/dL AST 23 (5-31) U/L ALT 16 (0-31) U/L Alkaline Phosphatase 70 (39-117) U/L Albumin 4.5 (3.5-5.0) g/dL Assessment and Plan (1) Dysphagia: Status: Acute (2) Esophageal obstruction due to food impaction: Status: Acute Plan Patient with gradually worsening dysphagia over the last few weeks, now with intolerance to liquids as well. Overnight noted to have difficulty handling her secretions concerning for acute obstruction of esophagus. Differentials include esophageal stricture/ring/esophagitis, , dysmotility. GJ anastomosis stenosis/stricture Plan: -strict NPO -EGD to be performed today to rule out esophageal obstruction -further recommendations to follow in the procedure note Thank you for allowing me to participate in her care. Please do not hesitate to reach out for any questions or concerns Procedures Date of Service Date of Service: 10/13/24
[2024-10-13] MEDS: Morphine Sulfate 4 MG/ML CARTRIDGE IVPUSH (09:41)
[2024-10-13] MEDS: Metoclopramide HCl 10 MG/2 ML VIAL IVPUSH (09:45)
[2024-10-13] MEDS: Lactated Ringers 1,000 ML 999 ML IV (09:46)
--- NOTE | 2024-10-13 11:08 | P.CONAN_ITS ---
[facility] Active Problems Active Problems: All Active Problems Esophageal obstruction due to food impaction (Acute) Dysphagia (Acute) Dysphonia (Acute) Malnutrition (Acute) Constipation (Acute) Acute anastomotic ulcer of gastrojejunal region (Acute) Past Medical History Medical History Kidney stones Hypothyroidism GERD (gastroesophageal reflux disease) Depression Anxiety disorder Asthma ADHD Family History Family History Unknown No problems noted. Mother No problems noted. Family history of problems with anesthesia: No Surgical History Surgical History History of lithotripsy Hx of colonoscopy Hx of cholecystectomy Hx of endoscopy Hx of gastric bypass History of Problems with Anesthesia: No Social History Social History Alcohol intake: current Alcohol intake frequency: holidays/special occasions only Alcohol type: hard liquor Patient Tobacco Use Status: Current everyday Tobacco user Tobacco use type: Cigarette Cigarettes Per Day: 12 Smoked in Last 30 Days: Yes Second Hand Smoke Exposure: No Use of substances other than those prescribed or required for medical reasons: Yes Substance Use Type: Marijuana Advance Directives: No Advance Directives Information Provided: No Do you have a plan to hurt others: No Plan Patient : No Meds Allergies Allergy/AdvReac Type Severity Reaction Status Date / Time scallops Allergy Mild Hives Verified 10/12/24 19:32 buspirone [From BUSPAR] AdvReac Severe UNKNOWN Verified 10/12/24 19:32 selective serotonin reuptake Allergy Severe Unknown Uncoded 10/12/24 19:32 inhibi Home Medications ?Medication ?Instructions ?Recorded ?Confirmed ?Last Taken ?Type albuterol sulfate 90 mcg/actuation 2 puff PO DAILY 12/08/20 09/21/23 Unknown History aerosol inhaler (ProAir HFA) clonazepam 2 mg tablet 2 mg PO TID 09/27/21 09/21/23 Unknown History dextroamphetamine-amphetamine 30 1 tab PO BID 09/27/21 09/25/23 09/25/23 History mg tablet levothyroxine 175 mcg tablet 175 mcg PO DAILY 09/27/21 09/25/23 09/25/23 History nitrofurantoin 1 cap PO DAILY 09/27/21 Unknown History monohydrate/macrocrystals 100 mg capsule tramadol 50 mg tablet 100 mg PO QID 09/27/21 09/21/23 Unknown History valacyclovir 500 mg tablet 500 mg PO DAILY 09/27/21 09/21/23 Unknown History duloxetine 30 mg capsule,delayed 30 mg PO DAILY 03/31/22 09/21/23 Unknown History release naloxone 4 mg/actuation nasal spray 1 spray intranasal DAILY 08/01/22 Unknown History Exam Height,Weight and Vital Signs: Height 5 ft 6 in Weight 53.5 kg Last Vital Signs Temp 98.0 F 10/13/24 06:18 Pulse 79 10/13/24 06:18 Resp 18 10/13/24 06:18 BP 124/88 10/13/24 06:18 Pulse Ox 96 10/13/24 06:18 O2 Del Method Room Air 10/13/24 06:18 Pertinent Lab Results Pertinent Lab Results: Laboratory Tests 10/12/24 19:54 WBC 8.6 RBC 5.17 Hgb 11.9 L Hct 39.1 MCV 75.6 L MCH 23.0 L MCHC 30.4 L RDW 18.8 H Plt Count 277 MPV 8.0 L Immature Gran % (Auto) 0.2 Neut % (Auto) 76.6 H Lymph % (Auto) 15.4 L Ramsey % (Auto) 6.0 Eos % (Auto) 1.1 Baso % (Auto) 0.7 Lymph # (Auto) 1.3 Ramsey # (Auto) 0.5 Eos # (Auto) 0.1 Baso # (Auto) 0.1 Abs Immat Gran (auto) 0.02 Absolute Neuts (auto) 6.6 Absolute Nucleated RBC 0.000 Nucleated RBC % (auto) 0.0 Sodium 140 Potassium 3.2 L Chloride 107 Carbon Dioxide 27 Anion Gap 9 L BUN 15 Creatinine 0.78 Estim Creat Clear Calc 71.2 Estimated GFR > 60 Random Glucose 112 Calcium 9.9 D Total Bilirubin 0.8 AST 23 ALT 16 Alkaline Phosphatase 70 Total Protein 7.6 Albumin 4.5 Lipase 18 Airway Mallampati Class: II TM Dist: >3cm Neck ROM: Full Assessment and Plan Assessment Anesthesia Assessment: Anesthesia Plan Discussed Final Anesthetic Review Family History of Problems with Anesthesia: No History of Problems with Anesthesia: No NPO: Yes ASA Class: II and Emergency Final Preanesthetic Review: No Changes in Pt Med Stat, Meds/Allgs Chart Reviewed, Consent Obtained/Reviewed and Anes Risks/Benef Reviewed Patient Risk: Intermediate Procedure Risk: Low Anesthetic Plan Anesthetic Plan: TIVA Disposition: Standard PACU
[2024-10-13 11:10] VITALS: BP 110/72; PULSE 93; RESP 16; TEMP 36.8; O2SAT 97
[2024-10-13 11:55] VITALS: BP 117/76; PULSE 86; RESP 16; TEMP 37; O2SAT 99
--- NOTE | 2024-10-13 11:57 | P.OP_ITS ---
Operative Note Operative Note Date of Service: 10/13/24 Narrative: Procedure: Esophagogastroduodenoscopy Endoscopist: Zhanna Britt MD Indication: Dysphagia r/o food impaction Anesthesia Provider: Dr Minerva Maldonado Anesthesia Type: MAC ?? EGD Procedure:?? The procedure, indications, preparation and potential complications were reviewed with the patient, who indicated understanding and gave written informed consent to proceed. A physical exam was performed. The endoscope was introduced through the mouth, and advanced to the second part of duodenum. The mucosa was carefully examined on slow withdrawal of the endoscope. The patient tolerated the procedure well. There were no immediate complications.? ? EGD Findings:? * Esophagus:? Normal mucosa noted in the entire esophagus. The Z line was at 40 cm. No obvious narrowing/stricture was noted. Prev bx negative for EoE. A through the scope balloon was passed through the biopsy channel and advanced to the GE junction. Dilation to 20 mm was performed without any resistance felt. No heme or tear noted post dilation. * Stomach:? Small piece of undigested solid food was present in the gastric pouch. Small gastric pouch with GJ anastomosis at 45 cm with superficial 5 mm nonbleeding ulceration on jejunal aspect. The GJ opening appeared somewhat narrow but scope could easily traverse through this. Retroflexion was not attempted. * Jejunum: Normal endoscopic appearance of the mucosa in both the limbs. ? EGD Impressions:? * Normal esophagus (dilation) * Food in stomach * Mild anastomotic ulceration * Normal small bowel ?? Recommendations:?? * Likely had spontaneous resolution of food impaction as food bolus already in stomach by the time of EGD * Continue PPI therapy - pt advised to OPEN the capsules and mix in applesauce/pudding * Avoid NSAIDs. * Cut food in small pieces and chew thoroughly * Recommend barium swallow +/- HREM as outpatient Above has been reviewed with the patient. Relevant educational hand outs were provided at discharge.
[2024-10-13 12:10] VITALS: BP 120/76; PULSE 80; RESP 16; TEMP 37.1; O2SAT 99
[2024-10-13 12:57] VITALS: BP 120/76; PULSE 80; RESP 16; TEMP 37.1; O2SAT 99
== END 2024-10-13 07:37 | disposition home or self-care (01) ==
LOC: HO.ED 21:53 → HO.SSS 10-13 07:52
PROVIDERS: Physician Assistant; Emergency Provider Emergency Medicine; PCP Internal Medicine; Visit Provider Internal Medicine
PROC: 0DJ08ZZ Inspection of Upper Intestinal Tract, Via Natural or Artificial Opening Endoscopic (ICD-10-PCS; CPT 43235; principal; 2024-10-13 10:30)
DX: R13.10 Dysphagia, unspecified (principal); T18.2XXA Foreign body in stomach, initial encounter; W44.F3XA Food entering into or through a natural orifice, initial encounter; K22.2 Esophageal obstruction; K28.3 Acute gastrojejunal ulcer without hemorrhage or perforation; K63.89 Other specified diseases of intestine; K21.9 Gastro-esophageal reflux disease without esophagitis; Y93.89 Activity, other specified; Y92.009 Unspecified place in unspecified non-institutional (private) residence as the place of occurrence of the external cause; Y99.9 Unspecified external cause status; E03.9 Hypothyroidism, unspecified; J45.909 Unspecified asthma, uncomplicated; F90.9 Attention-deficit hyperactivity disorder, unspecified type; F41.9 Anxiety disorder, unspecified; E46 Unspecified protein-calorie malnutrition; Z68.1 Body mass index [BMI] 19.9 or less, adult; F17.210 Nicotine dependence, cigarettes, uncomplicated; F12.90 Cannabis use, unspecified, uncomplicated; Z87.442 Personal history of urinary calculi; Z79.899 Other long term (current) drug therapy
CPT/HCPCS: 43249; 36415; 71046; 74018; 80053; 83690; 85025; 96374; 96375; 96376; 99284; 99285; C1726; J1200; J1308; J2270; J2765; J3360

== ENCOUNTER → 2024-10-12 22:10 | Outpatient (BNV) | payer MEDICAID, SELFPAY | PROVIDERS: Emergency Provider Emergency Medicine; PCP Internal Medicine; Visit Provider Specialist | DX: R07.9 Chest pain, unspecified (principal); R11.10 Vomiting, unspecified; K59.00 Constipation, unspecified | CPT/HCPCS: 71046; 74018 ==

== ENCOUNTER → 2024-10-13 07:37 | Outpatient (BNV) | payer MEDICAID, SELFPAY | PROVIDERS: Emergency Provider Emergency Medicine; PCP Internal Medicine; Visit Provider Internal Medicine | DX: R13.10 Dysphagia, unspecified (principal); T18.128A Food in esophagus causing other injury, initial encounter; W44.F3XA Food entering into or through a natural orifice, initial encounter; K28.9 Gastrojejunal ulcer, unspecified as acute or chronic, without hemorrhage or perforation | CPT/HCPCS: 43249; 99222 ==

== ENCOUNTER 2024-11-07 15:32 | Outpatient (AMB) | payer MEDICAID, SELFPAY ==
[2024-11-07 15:36] VITALS: BP 147/86; PULSE 94; BMI 19.6
--- NOTE | 2024-11-07 15:36 | MHC.OFFVIS ---
Vital Signs 11/07/24 15:36 Height 5 ft 6.5 in Weight 123 lb 7.342 oz BMI 19.6 BP 147/86 H Blood Pressure Location Lt brachial Position Sitting Pulse 94 Intake Visit Reasons: egd w dialation Intake Note: Naomy presents in the office as a follow up for the results of her EGD w/ DIl. She is having issues with the issues of her eating. She states that she is no longer choking since she had the procedure. [employer] Third Step Required: No Allergies scallops Allergy (Mild, Verified 11/07/24 15:36) Hives buspirone [From BUSPAR] Adverse Reaction (Severe, Verified 11/07/24 15:36) UNKNOWN selective serotonin reuptake inhibi Allergy (Severe, Uncoded 11/07/24 15:36) Unknown HPI HPI egd w dialation: Details: 53 yr old f being seen for f/u RECAP: she was taking linaclotide, miralax and she still felt suboptimal emptying, still on tramadol appetite is variable nausea helped by prochlorperazine sups not taking levsin scheduled as suggested. She had called as she was unable to go to the bathroom and has complaints of abdominal pain and vomiting after eating. A KUB was ordered for her an dshe was supposed to use enemas after KUB was done. KUB showed she had moderate amount of stool in colon she reports she is not pooping and hasn't gone in over 4 days she states she can't eat or drink She stated she feels that she has a urinary tract infection and she is having trouble urinating Complaints of low pelvic pain, has CVA tenderness She mentions that she is continuing to lose weight, and is interested in protein shakes. She is a bit malnutrition and will try to order ensures for her. These may require a prior authorization repeat EGD showed ulcer markedly improved, small bowel bx normal small bowel follow thru: slow transit thought to be due to constipation, otherwise normal At f/u 09/2019- she was feeling well, sx well controlled with prilsoec, compazine she was given treatment for uti she tried motegrity which didn;t help At f/u 11/06--recurrence of sx, with epigastric pain and went back to smoking, with nausea and vomiting EGD: 12/07--There was a retained staple on gastric side, removed with forceps . mild erythema at the gastrojejunal anastomosis, slightly strictured, so dilated with 14 mm balloon. 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 VITAL SIGNS:see workflow HEENT: Nonicteric sclerae, PERRLA, EOMI. Oropharynx clear. Moist mucous membranes. Conjunctivae appear well perfused. No thyroid mass. CHEST: Chest wall is nontender. HEART: Regular rate and rhythm without murmurs. LUNGS: Clear to auscultation bilaterally. ABDOMEN: Soft, positive bowel sounds, nontender, no organomegaly.no flank tenderness SKIN: No rash, no excessive bruising, petechiae, or purpura. NEUROLOGIC: Cranial nerves II-XII intact without motor/sensory deficit. Psych: normal affect Assessment & Plan 1/ Dysphagia, better since dilation--smoking v rarely now PLAN: 1/ cont with PPI but reminded to open capsule and mix with apple sauce 2/ call me if any return of her sx [facility] Medical History Kidney stones Hypothyroidism GERD (gastroesophageal reflux disease) Depression Anxiety disorder Asthma ADHD Surgical History History of lithotripsy Hx of colonoscopy Hx of cholecystectomy Hx of endoscopy Hx of gastric bypass Family History Unknown No problems noted. Mother No problems noted. Social History Alcohol intake: current Alcohol intake frequency: holidays/special occasions only Alcohol type: hard liquor Patient Tobacco Use Status: Current everyday Tobacco user Tobacco use type: Cigarette Cigarettes Per Day: 12 Second Hand Smoke Exposure: No Substance Use Type: Marijuana Physical Exam Vital Signs: Last Vital Signs Pulse 94 11/07/24 15:36 BP 147/86 H 11/07/24 15:36 BMI result Body Mass Index 19.6 Assessment & Plan Assessment & Plan (1) Dysphagia: Code(s): R13.10 - Dysphagia, unspecified Category: Medical Plan: as above Medications: Refilled food supplemt, lactose-reduced (Boost Plus) drink 237 oz twice a day 1 ea PO BID 14,220 mL 2RF malnutrition food supplemt, lactose-reduced (Ensure High Protein oral liquid) 1 ea PO BID 30 days 60 packets 2RF Coding Level of Care Code Est Pt Level 3 (15855) Diagnoses Dysphagia R13.10
== END 2024-11-07 15:52 | disposition home or self-care (01) ==
LOC: HO.HGI 15:32
PROVIDERS: PCP Internal Medicine; Visit Provider Internal Medicine Gastroenterology
DX: R13.10 Dysphagia, unspecified (principal)
CPT/HCPCS: 99213

== ENCOUNTER → 2024-11-07 15:32 | Outpatient (BNVA) | payer MEDICAID, SELFPAY | PROVIDERS: PCP Internal Medicine; Visit Provider Internal Medicine Gastroenterology | DX: R13.10 Dysphagia, unspecified (principal) | CPT/HCPCS: 99212 ==